=== PATIENT | female | born 1955 | race Caucasian/White ===

== ENCOUNTER 2016-12-24 09:38 | Outpatient (CLI) ==
[2013-04-15 11:58] VITALS: TEMP 97.2
[2016-06-27 19:48] VITALS: BMI 30.4
--- NOTE | 2016-12-24 12:02 | MRI ---
EXAM: MRI left shoulder without contrast. HISTORY: Left shoulder pain x2 months. No injury. Decreased and painful range of motion. No left shoulder surgery reported.. TECHNIQUE: Using a local coil on a high field strength magnet multiplanar multisequence magnet reso nance imaging performed of the left shoulder without intravenous or intra-articular gadolinium contr ast.. FINDINGS: I do not have prior radiographs of the left shoulder available for comparison at the time of this dictation. A Type I acromion. Some anterolateral downsloping with the coracoacromial ligament/arch intact and no definitive thickening. Mild left acromioclavicular joint arthrosis. Deltoid musculature normal signal intensity. Trace free fluid subacromial/subdeltoid bursa. Muscle bulk of the rotator cuff shows no acute muscle strain or focal atrophy. Marked diffuse supra spinatus tendinosis. 7 mm area of shallow partial thickness bursal sided tear. No full-thickness r otator cuff tear identified. Specifically anterior intact subscapularis tendon fibers. The long he ad of the biceps tendon shows intact fibers located in expected position within the bicipital groove and within normal limits signal intensity and morphology. Left humeral head of normal morphology and seated. No left glenohumeral joint centered subchondral bone marrow edema or bone erosions. Physiologic amount of fluid left glenohumeral joint. Left henok oid labrum grossly intact on this non-arthrographic examination.. Bone marrow signal intensity show s heterogeneity along the proximal visualized left humeral shaft with decreased T1 signal intensity iso to hyperintense to muscle with some increased T2/STIR signal intensity.. IMPRESSION: Mild left acromioclavicular joint arthrosis. Marked diffuse supraspinatus tendinosis. 7 mm area of shallow partial thickness bursal sided tear. No full-thickness rotator cuff tear identified. Trace free fluid subacromial/subdeltoid bursa may reflect an overlying degree bursitis and/or be sequelae of prior shoulder injection. Correlate clin ically. Bone marrow signal heterogeneity proximal left humeral shaft which may reflect prominent red marrow. Correlate for reconversion. Recommendation is obtainment and correlation with plain film radiogra phs of the left shoulder as none are available for comparison at the time of this dictation.
== END 2016-12-24 09:39 | disposition home or self-care (01) ==
LOC: RAD 09:38
DX: M25.512 Pain in left shoulder (principal); G89.29 Other chronic pain

== ENCOUNTER 2016-12-26 19:18 | Emergency (ER) ==
[2016-12-26 19:35] VITALS: BP 90/58; TEMP 99.1; BMI 31.6
[2016-12-26] MEDS ORDERED: SODIUM CHLORIDE 500 ML IV STA (19:57)
[2016-12-26 19:59] LABS: BASOPHILS % (AUTO) 0.5 % (0.0-3.0); EOSINOPHILS # (AUTO) 0.1 K/ul (0.0-0.7); EOSINOPHILS % (AUTO) 1.2 % (0.0-7.0); HEMOGLOBIN 10.9 g/dl (12.0-16.0); IMMATURE GRANULOCYTE % (AUTO) 0.5 % (0.0-5.0); LYMPHOCYTES # (AUTO) 2.3 K/uL (0.60-3.4); LYMPHOCYTES % (AUTO) 34.7 (10.0-50.0); MEAN CORPUSCULAR HEMOGLOBIN 27.3 pg (27.0-31.0); MEAN CORPUSCULAR HGB CONC 31.1 (31.8-35.4); MEAN CORPUSCULAR VOLUME 87.5 fl (81.0-99.0); MONOCYTES # (AUTO) 0.5 K/uL (0.4-2.0); MONOCYTES % (AUTO) 8.2 (0-10); NEUTROPHILS # (AUTO) 3.6 K/ul (2.0-6.9); NEUTROPHILS % (AUTO) 54.9; PLATELET COUNT 266 10^3/uL (140-440); WHITE BLOOD COUNT 6.58 K/ul (4.6-10.2)
--- NOTE | 2016-12-26 20:02 | ED.PDOC ---
General ED Provider: Dr. VEENA LING Chief Complaint: Non-specific Complaint Stated Complaint: Been feeling weka, tired, blood pressure is low, she is started on HCTZ, cramps in legs, shortness of breath. blood sugars are high Time Seen by Physician: 20:02 Mode of Arrival: Wheelchair Information Source: Patient Primary Care Provider: DANI GALVEZ Nursing and Triage Documentation Reviewed and Agree: Yes Neurological Complaint Exam - Weakness Complaint/Exam Onset: Gradual Symptoms Are: Still present Timing: Constant Episodes Lasting: Days Initial Severity: Moderate Current Severity: Moderate Character: Reports: Head spinning, Room spinning, Lightheaded Aggravating: Reports: None Alleviating: Reports: None Associated Signs and Symptoms: Reports: Short of air, Unsteady gait, Decreased oral intake, Change in medication, Loss of balance. Denies: Nausea, Vomiting, Diaphoresis, Tinnitus, Chest pain, Palpitations, GI blood loss, Visual changes, Change in diet, OTC meds Cardiac Risk Factors: Reports: Hypertension, Elevated lipids CVA Risk Factors: Reports: Hypertension Related Surgical History: Reports: None JVD Present: No Carotid Bruit Present: No Rectal Heme Positive: No Nystagmus Present: No Gag Reflex Present: No Meningeal Signs Positive: No Focal Weakness: Present: None Focal Sensory Loss: Present: None Gait: Unable [id number]: Normal Findings Romberg Test Positive: No Babinski Sign: Negative Right, Negative Left Heel to Toe Normal: No Maurisio-Hallpike Test Positive: No Differential Diagnoses: Medication reaction, Metabolic abnormalities, Other (dm 2, ) Review of Systems - Review Of Systems Constitutional: Reports: Malaise, Weakness Eyes: Reports: No symptoms Ears, Nose, Mouth, Throat: Reports: No symptoms Respiratory: Reports: Short of air Cardiac: Reports: No symptoms GI: Reports: No symptoms : Reports: No symptoms Musculoskeletal: Reports: No symptoms Skin: Reports: No symptoms Neurological: Reports: Headache, Weakness Endocrine: Reports: No symptoms Hematologic/Lymphatic: Reports: No symptoms All Other Systems: Reviewed and Negative Past Medical History - Past Medical History Previously Healthy: No Endocrine: Reports: Dyslipidemia Cardiovascular: Reports: None Respiratory: Reports: None Hematological: Reports: None Gastrointestinal: Reports: GERD Genitourinary: Reports: None Neuro/Psych: Reports: None Musculoskeletal: Reports: None Cancer: Reports: None Last Menstrual Period: unknown - Surgical History General Surgical History: Reports: Hysterectomy, Unknown - Family History Family History: Reports: Unknown - Social History Smoking Status: Current every day smoker, Light tobacco smoker Smoking Cessation Counseling Time: > 3 min - 10 min Hx Substance Use: No Alcohol Screening: None Physical Exam - Physical Exam Appearance: Ill-appearing Pain Distress: Moderate Eyes: EOMI, Conjunctiva clear ENT: Ears normal, Nose normal, Oropharynx normal Respiratory: Breath sounds diminished Cardiovascular: RRR, Pulses normal, No rub, No murmur GI/: Soft, Nontender, No masses, Bowel sounds normal, No Organomegaly Musculoskeletal: Normal strength, ROM intact, No edema, No calf tenderness Skin: Warm, Dry, Normal color Neurological: Sensation intact, Motor intact, Reflexes intact, Cranial nerves intact, Alert, Oriented Psychiatric: Affect appropriate, Mood appropriate Interpretation - Radiology Interpretation Radiology Interpretation By: Radiologist Radiology Results: Negative Exam Interpreted: CT Scan Critical Care Note - Critical Care Note Total Time (mins): 0 Course - Course Hematology/Chemistry: 12/26/16 19:50 12/26/16 19:50 Orders, Labs, Meds: Lab Review 12/26/16 12/26/16 19:50 19:57 WBC 6.58 RBC 4.00 L Hgb 10.9 L Hct 35.0 L MCV 87.5 MCH 27.3 MCHC 31.1 L RDW Coeff of Fabian 13.9 Plt Count 266 Immature Gran % (Auto) 0.5 Neut % (Auto) 54.9 Lymph % (Auto) 34.7 [place] % (Auto) 8.2 Eos % (Auto) 1.2 Baso % (Auto) 0.5 Immature Gran # (Auto) 0.0 Neut # 3.6 Lymph # 2.3 [place] # 0.5 Eos # 0.1 Baso # 0.0 Puncture Site Rrad O2 Saturation 98.0 ABG pH 7.432 ABG pCO2 40.5 ABG pO2 98.0 ABG HCO3 27 H ABG Total CO2 28 ABG Base Excess 3 H Kash Test + O2 Delivery Device bnc Oxygen Liter Flow 3.00 FiO2 % 32.0 Sodium 138 Potassium 4.1 Chloride 99 Carbon Dioxide 30 Anion Gap 13.1 BUN 20 H Creatinine 1.41 H Estimated GFR (MDRD) 38.00 BUN/Creatinine Ratio 14.18 Glucose 99 Calcium 9.0 Total Bilirubin 0.15 AST 20 ALT 14 Alkaline Phosphatase 96 Total Protein 7.3 Albumin 3.5 Globulin 3.8 Albumin/Globulin Ratio 0.92 Orders Category Date Time Status ABG DRAW REQUEST Stat CARDIO 12/26/16 19:57 Completed ED IV/MEDIPORT/POWERPORT .ONCE EMERGENCY 12/26/16 19:57 Active ABG Stat LAB 12/26/16 19:57 Completed CBC W/ AUTO DIFF Stat LAB 12/26/16 19:50 Completed COMPREHENSIVE METABOLIC PANEL Stat LAB 12/26/16 19:50 Completed UA [URINALYSIS C & S IF INDICATED] Stat LAB 12/26/16 19:44 Uncollected 0.9 % Sodium Chloride [Saline Flush] MEDS 12/26/16 19:57 Ordered 1 syr IVF PRN PRN Sodium Chloride 0.9% [Sodium Chloride] 500 ml MEDS 12/26/16 19:57 Active IV 125 mls/hr CT CHEST W/O CONTRAST Stat RADS 12/26/16 19:[address] HEAD W/O CONTRAST Stat RADS 12/26/16 19:57 Completed Medications Generic Name Dose Route Start Last Admin Trade Name Freq PRN Reason Stop Dose Admin Sodium Chloride 500 mls @ 125 mls/hr 12/26/16 19:57 Sodium Chloride IV 12/26/16 23:56 .Q4H STA Sodium Chloride 1 syr 12/26/16 19:57 Saline Flush IVF PRN PRN To flush IV Vital Signs: Temp Pulse Resp BP Pulse Ox 12/26/16 19:19 99.1 F 71 20 90/58 L 90 L Departure - Departure Time of Disposition: 20:53 Disposition: HOME SELF-CARE Discharge Problem: Dehydration Instructions: Dehydration (ED) Condition: Stable Pt referred to PMD for follow-up: Yes Additional Instructions: Increase hydration HCTZ every otherday needs back of Pain medications Allergies/Adverse Reactions: Allergies aspirin Adverse Reaction (Verified 06/08/16 16:31) Difficulty Breathing iodine Adverse Reaction (Verified 06/08/16 16:31) Hives Home Medications: Ambulatory Orders Alprazolam [Xanax] 0.5 mg PO QID 04/15/13 Citalopram Hydrobromide [Celexa] 20 mg PO BEDTIME 11/20/13 Gabapentin [Neurontin] 300 mg PO TID 03/18/16 Ranitidine HCl 150 mg PO DAILY PRN 03/18/16 Zolpidem Tartrate [Ambien] 10 mg PO BEDTIME 03/18/16 Carisoprodol [Soma] 350 mg PO QID 12/26/16 Hydrochlorothiazide 12.5 mg PO DAILY 12/26/16 Hydrocodone Bit/Acetaminophen [[place] 10-325] 1 each PO Q6HR 12/26/16 Quetiapine Fumarate [Seroquel] 100 mg PO QID 12/26/16 Disposition Discussed With: Patient, Family
[2016-12-26 20:15] LABS: ABG BASE EXCESS 3 (-2.0-2.0); ABG HCO3 27 (22.0-26.0); ABG PCO2 40.5 mmHg (35-45); ABG PH 7.432 (7.35-7.45); ABG TCO2 28 (22.0-28.0)
[2016-12-26 20:19] LABS: ALBUMIN 3.5 g/dL (3.4-5.0); ALBUMIN/GLOBULIN RATIO 0.92; ANION GAP 13.1; BILIRUBIN,TOTAL 0.15 mg/dL (0.00-1.20); BUN/CREATININE RATIO 14.18; CREATININE 1.41 mg/dL (0.60-1.30); POTASSIUM 4.1 mmol/L (3.5-5.10); TOTAL PROTEIN 7.3 g/dL (5.8-8.1)
--- NOTE | 2016-12-26 20:34 | CT ---
EXAM: CT head without contrast. HISTORY: Weakness. Dizziness. COMPARISON: 03/19/2016. TECHNIQUE: Multiple axial images of the brain were obtained from the skull base through the vertex without intravenous contrast. FINDINGS: There is no intracranial hemorrhage or extraaxial collection. The fonseca-white differentia tion is maintained without evidence for acute large vascular territory infarction. There are areas of periventricular and subcortical white matter low attenuation. The cortical sulci and cerebral ve ntricles are symmetrically enlarged. The basal cisterns are well visualized. There is no hydroceph alus, mass effect, or midline shift. The paranasal sinuses and mastoid air cells are clear. The ca lvarium is intact. Since the prior study, there has been no significant interval change. IMPRESSION: 1. No acute intracranial abnormality. 2. Chronic small vessel ischemic changes and atrophy.
--- NOTE | 2016-12-26 20:42 | CT ---
EXAM: CT chest without contrast. HISTORY: Shortness of breath. Weakness. COMPARISON: 07/20/2015. TECHNIQUE: Multiple axial images of the chest were obtained without intravenous contrast. Images w ere reformatted in the sagittal and coronal planes. FINDINGS: Evaluation for lymphadenopathy is limited due to lack of intravenous contrast. Heart siz e is normal. There is no pericardial effusion. Atherosclerotic calcifications noted. Moderate emphysematous changes present bilaterally. Calcified granulomatous changes are present. L inear subsegmental atelectasis seen in the right lower lobe. No consolidation, pleural effusion or pneumothorax identified. Limited images of the upper abdomen demonstrate no acute abnormality. Degenerative changes present in the spine. IMPRESSION: 1. No acute cardiopulmonary process. 2. Moderate emphysema.
[2016-12-26 22:02] LABS: ADD URINE MICROSCOPIC NO; BILIRUBIN,URINE Negative (NEGATIVE); KETONES,URINE Trace (NEGATIVE); LEUKOCYTE ESTERASE ,URINE Negative (NEGATIVE); NITRITE,URINE Negative (NEGATIVE); PROTEIN,URINE Negative (NEGATIVE); URINE, BLOOD Negative (NEGATIVE)
== END 2016-12-26 23:01 | disposition home or self-care (01) ==
LOC: ED 19:18
DX: E86.0 Dehydration (principal); R42 Dizziness and giddiness; R51 Headache; R06.02 Shortness of breath; I10 Essential (primary) hypertension; E78.5 Hyperlipidemia, unspecified; F17.210 Nicotine dependence, cigarettes, uncomplicated; Z79.899 Other long term (current) drug therapy
CPT/HCPCS: 36415; 80053; 81001; 82803; 85025; 96360; 96361; 99283

== ENCOUNTER 2017-05-01 08:32 | Emergency (ER) | payer OTHER ==
[2017-05-01 08:37] VITALS: BP 115/74; TEMP 96.8; BMI 30.4
[2017-05-01 09:24] LABS: BASOPHILS % (AUTO) 0.5 % (0.0-3.0); EOSINOPHILS % (AUTO) 0.5 % (0.0-7.0); HEMATOCRIT 34.2 % (37.0-47.0); HEMOGLOBIN 10.4 g/dl (12.0-16.0); IMMATURE GRANULOCYTE % (AUTO) 0.4 % (0.0-5.0); LYMPHOCYTES # (AUTO) 2.1 K/uL (0.60-3.4); LYMPHOCYTES % (AUTO) 26.3 (10.0-50.0); MEAN CORPUSCULAR HEMOGLOBIN 24.2 pg (27.0-31.0); MEAN CORPUSCULAR HGB CONC 30.4 (31.8-35.4); MEAN CORPUSCULAR VOLUME 79.7 fl (81.0-99.0); MONOCYTES # (AUTO) 0.7 K/uL (0.4-2.0); MONOCYTES % (AUTO) 8.1 (0-10); NEUTROPHILS # (AUTO) 5.1 K/ul (2.0-6.9); NEUTROPHILS % (AUTO) 64.2; PLATELET COUNT 321 10^3/uL (140-440); RED BLOOD COUNT 4.29 10^6/ul (4.20-5.40); WHITE BLOOD COUNT 7.98 K/ul (4.6-10.2)
[2017-05-01 09:32] LABS: ABG BASE EXCESS 1 (-2.0-2.0); ABG HCO3 25.6 (22.0-26.0); ABG PCO2 39.4 mmHg (35-45)
[2017-05-01 09:33] LABS: ABG TCO2 27 (22.0-28.0)
[2017-05-01 09:46] LABS: ALANINE AMINOTRANSFERASE 14 U/L (12-78); ALBUMIN 3.9 g/dL (3.4-5.0); ALBUMIN/GLOBULIN RATIO 1.03; ALKALINE PHOSPHATASE 100 U/L (53-141); ASPARTATE AMINO TRANSFERASE 16 U/L (15-37); BILIRUBIN,TOTAL 0.41 mg/dL (0.00-1.20); BLOOD UREA NITROGEN 13 mg/dL (7-18); CALCIUM 9.2 mg/dL (8.2-10.2); CARBON DIOXIDE 24 mmol/L (23-31); CHLORIDE 105 mmol/L (98-107); CREATINE KINASE 79 U/L; CREATININE 1.04 mg/dL (0.60-1.30); GLUCOSE 104 mg/dL (82-115); SODIUM 139 mmol/L (136-145); TOTAL PROTEIN 7.7 g/dL (5.8-8.1)
[2017-05-01 10:02] LABS: BILIRUBIN,URINE Negative (NEGATIVE); KETONES,URINE Negative (NEGATIVE); LEUKOCYTE ESTERASE ,URINE 1+ (NEGATIVE); NITRITE,URINE Negative (NEGATIVE); PROTEIN,URINE Trace (NEGATIVE); URINE, BLOOD Trace-intact (NEGATIVE)
[2017-05-01 10:07] LABS: ADD URINE MICROSCOPIC YES
--- NOTE | 2017-05-01 10:19 | CT ---
EXAM: CT THORAX HISTORY: Cough. Shortness of breath. TECHNIQUE: CT thorax without intravenous contrast. 5-mm axial sections. Coronal and sagittal re-fo rmations. COMPARISON: 12/26/2016 FINDINGS: Normal heart size. No pericardial effusion. There is minimal atherosclerotic disease. No active m ediastinal or hilar lymphadenopathy is suggested. A few tiny calcified mediastinal lymph nodes. There is a small calcified granuloma in the left lung base. Early emphysematous changes are suggest ed in the upper lung zones. The lungs are mildly hyperinflated. No acute infiltrates, vascular con gestion, pneumothorax or pleural fluid. The bones reveal early degenerative endplate changes of the spine . IMPRESSION: 1. Early emphysematous changes in the upper lung zones are suggested. Mild hyperinflation. 2. No consolidated pneumonia or acute infiltrates. 3. Minimal atherosclerotic disease.
[2017-05-01] MEDS ORDERED: DECADRON 4 MG/ML SDV IM STA (10:31)
--- NOTE | 2017-05-01 10:34 | ED.PDOC ---
General ED Provider: Dr. BETH DELGADO Chief Complaint: Shortness of Air Stated Complaint: shortness of breath Time Seen by Physician: 08:34 Mode of Arrival: Walk-In Information Source: Patient Exam Limitations: No limitations Primary Care Provider: DANI GALVEZ Nursing and Triage Documentation Reviewed and Agree: Yes Respiratory Complaint Exam - Respiratory Complaint/Exam Onset/Duration: 1 day Symptoms Are: Still present Timing: Intermittent Initial Severity: Mild Current Severity: None Location: Chest Character: Reports: Non-productive cough Aggravating: Reports: None Alleviating: Reports: Spontaneous resolution Associated Signs and Symptoms: Reports: Nasal congestion. Denies: Rapid breathing, Dyspnea, Fever, Chills, Chest pain, Pleuritic chest pain, Wheezing, Hemoptysis, Dizziness, Calf pain, Calf swelling, Edema, URI, Hoarseness, Sinus discomfort, Vomiting, Sore throat, Weight loss, Decreased oral intake, Increased thirst, Increased appetite, Increased urination Related History: Reports: Similar episode History of Healthcare-Acquired Pneumonia: No Related Surgical History: Reports: None Pulmonary Embolism Risk Factors: Smoking Cardiac Risk Factors: Reports: Smoking Pseudomonas Risk Factors: Reports: None Tuberculosis Risk Factors: Reports: None Home Oxygen Use: No Recent Stress Test: No Recent Echo/LV Function: No Current Antibiotic Use: No Current Asthma Medication Use: No Respiratory Distress: None Inadequate Respiratory Effort: No Dysphagia Present: No Stridor Present: No JVD Present: No Accessory Muscle Use: No Retractions: Not Present Diminished Breath Sounds: No Sinus Tenderness: None Grunting Respirations: No Kussmaul Respirations: No Differential Diagnoses: Pneumonia, Bronchitis Non-Traumatic Chest Pain Syncope: EKG Performed Review of Systems - Review Of Systems Constitutional: Reports: Malaise Eyes: Reports: No symptoms Ears, Nose, Mouth, Throat: Reports: No symptoms Respiratory: Reports: Cough, Short of air Cardiac: Reports: No symptoms GI: Reports: No symptoms : Reports: No symptoms Musculoskeletal: Reports: No symptoms Skin: Reports: No symptoms Neurological: Reports: No symptoms Endocrine: Reports: No symptoms Hematologic/Lymphatic: Reports: No symptoms All Other Systems: Reviewed and Negative Past Medical History - Past Medical History Previously Healthy: No Endocrine: Reports: Dyslipidemia Cardiovascular: Reports: None Respiratory: Reports: None Hematological: Reports: None Gastrointestinal: Reports: GERD Genitourinary: Reports: None Neuro/Psych: Reports: None Musculoskeletal: Reports: None Cancer: Reports: None Last Menstrual Period: n/a - Surgical History General Surgical History: Reports: Hysterectomy, Unknown - Family History Family History: Reports: Unknown - Social History Smoking Status: Current every day smoker, Light tobacco smoker Hx Substance Use: No Alcohol Screening: None Physical Exam - Physical Exam Appearance: Well-appearing, No pain distress, Well-nourished Eyes: DONTE, EOMI, Conjunctiva clear ENT: Ears normal, Nose normal, Oropharynx normal Respiratory: Airway patent, Breath sounds clear, Breath sounds equal, Respirations nonlabored Cardiovascular: RRR, Pulses normal, No rub, No murmur GI/: Soft, Nontender, No masses, Bowel sounds normal, No Organomegaly Musculoskeletal: Normal strength, ROM intact, No edema, No calf tenderness Skin: Warm, Dry, Normal color Neurological: Sensation intact, Motor intact, Reflexes intact, Cranial nerves intact, Alert, Oriented Psychiatric: Affect appropriate, Mood appropriate Interpretation - Radiology Interpretation Radiology Interpretation By: Radiologist Radiology Results: No acute changes Critical Care Note - Critical Care Note Total Time (mins): 0 Course - Course Hematology/Chemistry: 05/01/17 09:10 05/01/17 09:10 Orders, Labs, Meds: Lab Review 05/01/17 05/01/17 09:10 09:55 WBC 7.98 RBC 4.29 Hgb 10.4 L Hct 34.2 L MCV 79.7 L MCH 24.2 L MCHC 30.4 L RDW Coeff of Fabian 17.1 H Plt Count 321 Immature Gran % (Auto) 0.4 Neut % (Auto) 64.2 Lymph % (Auto) 26.3 [place] % (Auto) 8.1 Eos % (Auto) 0.5 Baso % (Auto) 0.5 Immature Gran # (Auto) 0.0 Neut # 5.1 Lymph # 2.1 [place] # 0.7 Eos # 0.0 Baso # 0.0 D-Dimer (Manual) 1500.27 Puncture Site R rad O2 Saturation 98.0 ABG pH 7.420 ABG pCO2 39.4 ABG pO2 104.0 H ABG HCO3 25.6 ABG Total CO2 27 ABG Base Excess 1 Kash Test + O2 Delivery Device Nc Oxygen Liter Flow 3.50 Sodium 139 Potassium 4.0 Chloride 105 Carbon Dioxide 24 Anion Gap 14.0 BUN 13 Creatinine 1.04 Estimated GFR (MDRD) 54.00 BUN/Creatinine Ratio 12.50 Glucose 104 Lactic Acid 9.3 Calcium 9.2 Total Bilirubin 0.41 AST 16 ALT 14 Alkaline Phosphatase 100 Total Creatine Kinase 79 Troponin I < 0.0100 Total Protein 7.7 Albumin 3.9 Globulin 3.8 Albumin/Globulin Ratio 1.03 Procalcitonin < 0.05 Urine Color Yellow Urine Clarity Hazy Urine pH 6.0 Ur Specific [place] 1.010 Urine Protein Trace Urine Glucose (UA) Negative Urine Ketones Negative Urine Blood Trace-intact Urine Nitrite Negative Urine Bilirubin Negative Urine Urobilinogen 0.2 Ur Leukocyte Esterase 1+ Urine Microscopic RBC 2-5 Urine Microscopic WBC 0-2 Ur Squamous Epith Cells 10-20 Hyaline Casts 0-2 Fine Granular Casts 0-2 Orders Category Date Time Status ABG DRAW REQUEST Stat CARDIO 05/01/17 09:06 Completed EKG-(ED ONLY) Stat CARDIO 05/01/17 09:07 Completed ABG Stat LAB 05/01/17 09:10 Completed BLOOD CULTURE Stat LAB 05/01/17 09:10 Received CBC W/ AUTO DIFF Stat LAB 05/01/17 09:10 Completed COMPREHENSIVE METABOLIC PANEL Stat LAB 05/01/17 09:10 Completed CREATINE KINASE Stat LAB 05/01/17 09:10 Completed D-DIMER Stat LAB 05/01/17 09:10 Completed LACTIC ACID Stat LAB 05/01/17 09:10 Completed PROCALCITONIN Stat LAB 05/01/17 09:10 Completed TROPONIN I Stat LAB 05/01/17 09:10 Completed URINALYSIS C & S IF INDICATED Stat LAB 05/01/17 09:55 Completed Dexamethasone 4 mg/ml Inj [Decadron 4 mg/ml Sdv] MEDS 05/01/17 10:31 Stat 4 mg IM ONCE STA CT CHEST W/O CONTRAST Stat RADS 05/01/17 09:05 Completed Medications Discontinued Medications Generic Name Dose Route Start Last Admin Trade Name Freq PRN Reason Stop Dose Admin Dexamethasone Sodium Phosphate 4 mg 05/01/17 10:31 Decadron 4 Mg/Ml Sdv IM 05/01/17 10:32 ONCE STA Vital Signs: Temp Pulse Resp BP Pulse Ox 05/01/17 08:34 96.8 F L 91 H 20 115/74 96 Departure - Departure Time of Disposition: 10:33 (nurse present at all time) Disposition: HOME SELF-CARE Discharge Problem: COPD (chronic obstructive pulmonary disease) Qualifiers: COPD type: unspecified COPD Qualifier Code: (J44.9) Chronic obstructive pulmonary disease, unspecified Anemia Qualifiers: Anemia type: unspecified type Qualifier Code: (D64.9) Anemia, unspecified Instructions: COPD (Chronic Obstructive Pulmonary Disease) (ED) Condition: Good Pt referred to PMD for follow-up: No Additional Instructions: Please call your Family Physician as soon as possible to schedule a follow-up appointment. Allergies/Adverse Reactions: Allergies aspirin Adverse Reaction (Verified 05/01/17 08:36) Difficulty Breathing iodine Adverse Reaction (Verified 05/01/17 08:36) Hives Home Medications: Ambulatory Orders Alprazolam [Xanax] 0.5 mg PO QID 04/15/13 Citalopram Hydrobromide [Celexa] 20 mg PO BEDTIME 11/20/13 Gabapentin [Neurontin] 300 mg PO BID 03/18/16 Ranitidine HCl 150 mg PO DAILY PRN 03/18/16 Zolpidem Tartrate [Ambien] 10 mg PO BEDTIME 03/18/16 Carisoprodol [Soma] 350 mg PO TID 12/26/16 Hydrochlorothiazide 12.5 mg PO DAILY 12/26/16 Hydrocodone Bit/Acetaminophen [[place] 10-325] 1 each PO Q8H PRN 12/26/16 Quetiapine Fumarate [Seroquel] 200 mg PO BID 12/26/16 Albuterol Sulfate [Proair Hfa] 2 puff IH BID 05/01/17 Budesonide/Formoterol Fumarate [Symbicort 160-4.5 Mcg Inhaler] 1 puff IH BID Metoprolol Tartrate [Lopressor] 50 mg PO BID 05/01/17 Montelukast Sodium [Singulair] 10 mg PO BEDTIME 05/01/17 Ondansetron HCl [Zofran] 4 mg PO PRN PRN 05/01/17 Disposition Discussed With: Patient
== END 2017-05-01 11:09 | disposition home or self-care (01) ==
LOC: ED 08:32
DX: J44.9 Chronic obstructive pulmonary disease, unspecified (principal); D64.9 Anemia, unspecified; Z79.899 Other long term (current) drug therapy; F17.210 Nicotine dependence, cigarettes, uncomplicated
CPT/HCPCS: 36415; 80053; 81001; 82550; 82803; 83605; 84145; 84484; 85025; 85379; 87040; 93005; 93010; 96372; 99283

== ENCOUNTER 2017-06-11 21:11 | Inpatient (IN) ==
[2017-06-11] MEDS ORDERED: SODIUM CHLORIDE 1,000 ML IV STA ×2 (21:21→21:54)
[2017-06-11 21:42] LABS: BASOPHILS # (AUTO) 0.1 K/uL (0-0.2); BASOPHILS % (AUTO) 0.7 % (0.0-3.0); EOSINOPHILS # (AUTO) 0.1 K/ul (0.0-0.7); EOSINOPHILS % (AUTO) 0.9 % (0.0-7.0); HEMATOCRIT 28.8 % (37.0-47.0); HEMOGLOBIN 8.7 g/dl (12.0-16.0); IMMATURE GRANULOCYTE % (AUTO) 0.5 % (0.0-5.0); LYMPHOCYTES % (AUTO) 37.6 (10.0-50.0); MEAN CORPUSCULAR HGB CONC 30.2 (31.8-35.4); MEAN CORPUSCULAR VOLUME 79.6 fl (81.0-99.0); MONOCYTES # (AUTO) 0.6 K/uL (0.4-2.0); NEUTROPHILS # (AUTO) 4.3 K/ul (2.0-6.9); NEUTROPHILS % (AUTO) 53.3; PLATELET COUNT 275 10^3/uL (140-440); RED BLOOD COUNT 3.62 10^6/ul (4.20-5.40); WHITE BLOOD COUNT 8.01 K/ul (4.6-10.2)
--- NOTE | 2017-06-11 21:51 | ED.PDOC ---
General ED Provider: Dr. ESTELITA KAUFMAN Chief Complaint: Non-specific Complaint Stated Complaint: Albert is a 62 year old female who comes to the ER after she collapsed at home. Her blood pressure has been running low in the past and was recently put on supplimental 02. Polinat states that she went without oxygen today while going to pain management to get shots in back. Pt. usually wears 02 at 3.5L/C at home. c/o headache rating 4/10. Says patient also ate 5 small fudge josé miguel. blood glucose was 147 in the ER upon arrival. has multiple medications that could cause sedation. sometime not sure how she takes them per Tam' Time Seen by Physician: 21:49 Mode of Arrival: Wheelchair Information Source: Patient Exam Limitations: No limitations Primary Care Provider: DANI GALVEZ Nursing and Triage Documentation Reviewed and Agree: Yes Neurological Complaint Exam - Syncope/Near Syncope Complaint/Exam Onset/Duration: 30 min Symptoms Are: Still present Number of Episodes: 1 Frequency of Episodes: yes fiancee' Episodes Witnessed: Yes Loss of Consciousness: No Associated Head Trauma: No Activity at Onset: At rest Aggravating: Position change Alleviating: Reports: Position change Associated Signs and Symptoms: Reports: Pain (back ), Lightheadedness, Dizziness , Weakness, Headache. Denies: Vomiting, Diarrhea, GI blood loss, Short of air, Chest pain, Palpitations, Diaphoresis, Numbness, Seizure, Remote head trauma, Recent head trauma Related History: Similar episode Cardiac Risk Factors: Reports: None Dysrhythmia Risk Factors: Reports: None Review of Systems - Review Of Systems Constitutional: Reports: Malaise, Weakness Eyes: Reports: No symptoms, Blindness Ears, Nose, Mouth, Throat: Reports: No symptoms Respiratory: Reports: No symptoms Cardiac: Reports: Lightheadedness, Syncope GI: Reports: No symptoms : Reports: No symptoms Musculoskeletal: Reports: Back pain, Muscle pain Skin: Reports: No symptoms Neurological: Reports: Anxiety, Depressed All Other Systems: Reviewed and Negative Past Medical History - Past Medical History Previously Healthy: No Endocrine: Reports: Dyslipidemia Cardiovascular: Reports: None Respiratory: Reports: COPD Hematological: Reports: None Gastrointestinal: Reports: GERD Genitourinary: Reports: None Neuro/Psych: Reports: None Musculoskeletal: Reports: Arthritis, Back Pain Cancer: Reports: None Last Menstrual Period: 1983 - Surgical History General Surgical History: Reports: Hysterectomy, Unknown - Family History Family History: Reports: Unknown - Social History Smoking Status: Current every day smoker, Light tobacco smoker Hx Substance Use: No Alcohol Screening: None - Immunizations Tetanus Shot up to Date: Yes Physical Exam - Physical Exam Appearance: Ill-appearing, Obese Ill-appearing: Severe Pain Distress: Moderate Eyes: DONTE, EOMI, Conjunctiva clear ENT: Nose normal, Oropharynx normal Neck: Supple Respiratory: Airway patent, Breath sounds clear, Breath sounds equal, Respirations nonlabored Cardiovascular: RRR, Pulses normal, No rub, No murmur GI/: Soft, Nontender Musculoskeletal: Normal strength, ROM intact, No edema, No calf tenderness Skin: Warm, Dry, Normal color Neurological: Alert to pain Psychiatric: Anxious Re-Evaluation - Re-Evaluation Time of Re-Evaluation: 23:48 Status: Improved (much more awake ) Vital Signs Stable: Yes (91/44) Physician Notification - Case Discussed Physician Notified: Miteshjjose cruz Time of Notification: 23:45 (ok to admit ) Critical Care Note - Critical Care Note Total Time (mins): 45 Course - Course Hematology/Chemistry: 06/11/17 21:30 06/11/17 21:30 Orders, Labs, Meds: Lab Review 06/11/17 06/11/17 06/11/17 21:21 21:30 22:00 WBC 8.01 RBC 3.62 L Hgb 8.7 L Hct 28.8 L MCV 79.6 L MCH 24.0 L MCHC 30.2 L RDW Coeff of Fabian 16.7 H Plt Count 275 Immature Gran % (Auto) 0.5 Neut % (Auto) 53.3 Lymph % (Auto) 37.6 Mills % (Auto) 7.0 Eos % (Auto) 0.9 Baso % (Auto) 0.7 Immature Gran # (Auto) 0.0 Neut # 4.3 Lymph # 3.0 Mills # 0.6 Eos # 0.1 Baso # 0.1 Puncture Site Lb O2 Saturation 97.0 ABG pH 7.349 L ABG pCO2 44.6 ABG pO2 100.0 ABG HCO3 24.6 ABG Total CO2 26 ABG Base Excess -1 Kash Test + O2 Delivery Device bnc Oxygen Liter Flow 2.00 FiO2 % 28.0 Sodium 140 Potassium 3.8 Chloride 105 Carbon Dioxide 23 Anion Gap 15.8 BUN 18 Creatinine 1.32 H Estimated GFR (MDRD) 41.00 BUN/Creatinine Ratio 13.63 Glucose 142 H Lactic Acid 16.4 Calcium 8.8 Total Bilirubin 0.11 AST 15 ALT 18 Alkaline Phosphatase 100 Troponin I < 0.0100 Total Protein 6.8 Albumin 3.2 L Globulin 3.6 Albumin/Globulin Ratio 0.89 Procalcitonin < 0.05 Orders Category Date Time Status ADMIT PATIENT INPATIENT .TO [facility] (MONITORED BED) ADMISSION 06/11/17 23: 30 Active ABG DRAW REQUEST Stat CARDIO 06/11/17 21:21 Completed EKG-(ED ONLY) Stat CARDIO 06/11/17 22:04 Completed NEBULIZER TREATMENT Routine CARDIO 06/11/17 23:41 Active OXYGEN Routine CARDIO 06/11/17 23:30 Active ACTIVITY .Early Mobilization for VTE Prevention CARE 06/11/17 23:31 Active INTAKE & OUTPUT Q8HR CARE 06/11/17 23:30 Active IV ACCESS ONCE CARE 06/11/17 21:20 Active TELEMETRY MONITORING TELE CARE 06/11/17 23:31 Active REGULAR DIET DIETARY 06/11/17 Breakfast Ordered ED ACCUCHECK ASSESSMENT .ONCE EMERGENCY 06/11/17 21:41 Active ED APPLY O2 .ONCE EMERGENCY 06/11/17 21:20 Active ED WHEELCHAIR VAN OPERATOR FIRST RESPONDER APPLIED .ONCE EMERGENCY 06/11/17 21:20 Active ABG Stat LAB 06/11/17 21:21 Completed BASIC METABOLIC PANEL DAILY@0600 LAB 06/12/17 06:00 Ordered BASIC METABOLIC PANEL DAILY@0600 LAB 06/13/17 06:00 Ordered BASIC METABOLIC PANEL DAILY@0600 LAB 06/14/17 06:00 Ordered BASIC METABOLIC PANEL DAILY@0600 LAB 06/15/17 06:00 Ordered BASIC METABOLIC PANEL DAILY@0600 LAB 06/16/17 06:00 Ordered BASIC METABOLIC PANEL DAILY@0600 LAB 06/17/17 06:00 Ordered BASIC METABOLIC PANEL DAILY@0600 LAB 06/18/17 06:00 Ordered BASIC METABOLIC PANEL DAILY@0600 LAB 06/19/17 06:00 Ordered BASIC METABOLIC PANEL DAILY@0600 LAB 06/20/17 06:00 Ordered BASIC METABOLIC PANEL DAILY@0600 LAB 06/21/17 06:00 Ordered BASIC METABOLIC PANEL DAILY@0600 LAB 06/22/17 06:00 Ordered BASIC METABOLIC PANEL DAILY@0600 LAB 06/23/17 06:00 Ordered BASIC METABOLIC PANEL DAILY@0600 LAB 06/24/17 06:00 Ordered BASIC METABOLIC PANEL DAILY@0600 LAB 06/25/17 06:00 Ordered BASIC METABOLIC PANEL DAILY@0600 LAB 06/26/17 06:00 Ordered BASIC METABOLIC PANEL DAILY@0600 LAB 06/27/17 06:00 Ordered BASIC METABOLIC PANEL DAILY@0600 LAB 06/28/17 06:00 Ordered BASIC METABOLIC PANEL DAILY@0600 LAB 06/29/17 06:00 Ordered BASIC METABOLIC PANEL DAILY@0600 LAB 06/30/17 06:00 Ordered BASIC METABOLIC PANEL DAILY@0600 LAB 07/01/17 06:00 Ordered BLOOD CULTURE Stat LAB 06/11/17 21:30 Received CBC W/ AUTO DIFF DAILY@0600 LAB 06/12/17 06:00 Ordered CBC W/ AUTO DIFF DAILY@0600 LAB 06/13/17 06:00 Ordered CBC W/ AUTO DIFF DAILY@0600 LAB 06/14/17 06:00 Ordered CBC W/ AUTO DIFF DAILY@0600 LAB 06/15/17 06:00 Ordered CBC W/ AUTO DIFF DAILY@0600 LAB 06/16/17 06:00 Ordered CBC W/ AUTO DIFF DAILY@0600 LAB 06/17/17 06:00 Ordered CBC W/ AUTO DIFF DAILY@0600 LAB 06/18/17 06:00 Ordered CBC W/ AUTO DIFF DAILY@0600 LAB 06/19/17 06:00 Ordered CBC W/ AUTO DIFF DAILY@0600 LAB 06/20/17 06:00 Ordered CBC W/ AUTO DIFF DAILY@0600 LAB 06/21/17 06:00 Ordered CBC W/ AUTO DIFF DAILY@0600 LAB 06/22/17 06:00 Ordered CBC W/ AUTO DIFF DAILY@0600 LAB 06/23/17 06:00 Ordered CBC W/ AUTO DIFF DAILY@0600 LAB 06/24/17 06:00 Ordered CBC W/ AUTO DIFF DAILY@0600 LAB 06/25/17 06:00 Ordered CBC W/ AUTO DIFF DAILY@0600 LAB 06/26/17 06:00 Ordered CBC W/ AUTO DIFF DAILY@0600 LAB 06/27/17 06:00 Ordered CBC W/ AUTO DIFF DAILY@0600 LAB 06/28/17 06:00 Ordered CBC W/ AUTO DIFF DAILY@0600 LAB 06/29/17 06:00 Ordered CBC W/ AUTO DIFF DAILY@0600 LAB 06/30/17 06:00 Ordered CBC W/ AUTO DIFF DAILY@0600 LAB 07/01/17 06:00 Ordered CBC W/ AUTO DIFF Stat LAB 06/11/17 21:30 Completed COMPREHENSIVE METABOLIC PANEL Stat LAB 06/11/17 21:30 Completed CREATINE KINASE Q8H LAB 06/12/17 05:45 Ordered CREATINE KINASE Q8H LAB 06/12/17 13:45 Ordered LACTIC ACID Stat LAB 06/11/17 21:30 Completed PROCALCITONIN Stat LAB 06/11/17 21:30 Completed TROPONIN I Q8H LAB 06/12/17 05:45 Ordered TROPONIN I Q8H LAB 06/12/17 13:45 Ordered TROPONIN I Stat LAB 06/11/17 22:00 Completed Acetaminophen [Tylenol] MEDS 06/11/17 22:58 Discontinued 1,000 mg PO ONCE STA Acetaminophen [Tylenol] MEDS 06/11/17 23:30 Ordered 650 mg PO Q4H PRN Enoxaparin Sodium [Lovenox] MEDS 06/12/17 09:00 Ordered 40 mg SUBCUT DAILY Ipratropium/Albuterol Neb [Duoneb] MEDS 06/12/17 06:00 Ordered 1 vial NEB RTQID Ondansetron HCl/Pf [Zofran 4 mg/2 ml] MEDS 06/11/17 23:30 Ordered 4 mg IVP Q6H PRN Sodium Chloride 0.9% [Sodium Chloride] 1,000 ml MEDS 06/11/17 21:21 Discontinued IV BOLUS Sodium Chloride 0.9% [Sodium Chloride] 1,000 ml MEDS 06/11/17 21:54 Discontinued IV BOLUS RESUSCITATION STATUS Routine OTHERS 06/11/17 23:30 Ordered CHEST, 1V AP ONLY Stat RADS 06/11/17 21:[address] HEAD W/O CONTRAST Stat RADS 06/11/17 22:56 Completed PT CONSULT Routine THERAPIES 06/11/17 Ordered Medications Generic Name Dose Route Start Last Admin Trade Name Freq PRN Reason Stop Dose Admin Acetaminophen 650 mg 06/11/17 23:30 Tylenol PO Q4H PRN Fever > 102 Acetaminophen/Hydrocodone Bitart tab 06/11/17 23:53 [place] 10-325 PO Q8H PRN Severe Pain Albuterol/Ipratropium 1 vial 06/12/17 06:00 Duoneb NEB RTQID [facility] Budesonide/Formoterol Fumarate 2 puff 06/12/17 09:00 Symbicort 160-4.5 Mcg Inhaler IH BID [facility] Citalopram Hydrobromide 20 mg 06/12/17 21:00 Celexa PO BEDTIME [facility] Enoxaparin Sodium 40 mg 06/12/17 09:00 Lovenox SUBCUT DAILY [facility] Gabapentin 300 mg 06/12/17 09:00 Neurontin PO BID [facility] Sodium Chloride 1,000 mls @ 135 mls/hr 06/12/17 00:30 06/12/17 00:18 Sodium Chloride IV 135 mls/hr .Q7H25M PENELOPE Administration Montelukast Sodium 10 mg 06/12/17 21:00 Singulair PO BEDTIME [facility] Non-Formulary Medication 150 mg 06/12/17 09:00 Ranitidine Hcl [Ranitidine Hcl] PO BID [facility] Ondansetron HCl 4 mg 06/11/17 23:30 Zofran 4 Mg/2 Ml IVP Q6H PRN Nausea / Vomiting Sodium Chloride 1 syr 06/12/17 05:00 Saline Flush IVF Q8HR [facility] Discontinued Medications Generic Name Dose Route Start Last Admin Trade Name Freq PRN Reason Stop Dose Admin Acetaminophen 1,000 mg 06/11/17 22:58 06/11/17 23:13 Tylenol PO 06/11/17 22:59 1,000 mg ONCE STA Administration Sodium Chloride 1,000 mls @ 1,000 mls/hr 06/11/17 21:21 06/11/17 21:40 Sodium Chloride IV 06/11/17 22:20 1,000 mls/hr BOLUS STA Administration Sodium Chloride 1,000 mls @ 1,000 mls/hr 06/11/17 21:54 06/11/17 22:39 Sodium Chloride IV 06/11/17 22:53 1,000 mls/hr BOLUS STA Administration Vital Signs: Temp Pulse Resp BP Pulse Ox 06/11/17 22:38 61 25 H 110/64 98 06/11/17 21:36 61 20 90/47 L 97 06/11/17 21:13 97.5 F L 66 20 94/51 L 94 L Departure - Departure Time of Disposition: 23:48 Disposition: ADMITTED INPATIENT Discharge Problem: Hypotension, Syncope and collapse, Back pain Condition: Fair Pt referred to PMD for follow-up: No (admitted ) Allergies/Adverse Reactions: Allergies aspirin Adverse Reaction (Verified 06/11/17 21:27) Difficulty Breathing iodine Adverse Reaction (Verified 06/11/17 21:27) Hives Home Medications: Ambulatory Orders Alprazolam [Xanax] 0.5 mg PO QID 04/15/13 Citalopram Hydrobromide [Celexa] 20 mg PO BEDTIME 11/20/13 Gabapentin [Neurontin] 300 mg PO BID 03/18/16 Ranitidine HCl 150 mg PO BID 03/18/16 Zolpidem Tartrate [Ambien] 10 mg PO BEDTIME 03/18/16 Hydrocodone Bit/Acetaminophen [[place] 10-325] 10 - 325 each PO Q8H PRN 12/26/16 Quetiapine Fumarate [Seroquel] 200 mg PO BID 12/26/16 Albuterol Sulfate [Proair Hfa] 2 puff IH BID 05/01/17 Budesonide/Formoterol Fumarate [Symbicort 160-4.5 Mcg Inhaler] 2 puff IH BID Metoprolol Tartrate [Lopressor] 50 mg PO BID 05/01/17 Montelukast Sodium [Singulair] 10 mg PO BEDTIME 05/01/17 Ondansetron HCl [Zofran] 4 mg PO Q8H PRN 05/01/17 Tizanidine HCl [Zanaflex] 4 mg PO BID 06/11/17
[2017-06-11 21:56] LABS: ABG BASE EXCESS -1 (-2.0-2.0); ABG HCO3 24.6 (22.0-26.0); ABG PCO2 44.6 mmHg (35-45); ABG PH 7.349 (7.35-7.45); ABG TCO2 26 (22.0-28.0)
[2017-06-11 22:01] LABS: ALBUMIN 3.2 g/dL (3.4-5.0); ALBUMIN/GLOBULIN RATIO 0.89; ANION GAP 15.8; BILIRUBIN,TOTAL 0.11 mg/dL (0.00-1.20); BUN/CREATININE RATIO 13.63; CALCIUM 8.8 mg/dL (8.2-10.2); CREATININE 1.32 mg/dL (0.60-1.30); POTASSIUM 3.8 mmol/L (3.5-5.10); TOTAL PROTEIN 6.8 g/dL (5.8-8.1)
[2017-06-11] MEDS ORDERED: TYLENOL PO STA (22:58)
[2017-06-11] MEDS ORDERED: SODIUM CHLORIDE 0.9%-KCL 20 MEQ 1,000 ML IV SCH (23:30)
[2017-06-11] MEDS ORDERED: ZOFRAN 4 MG/2 ML IVP PRN (23:30)
[2017-06-11] MEDS ORDERED: TYLENOL PO PRN (23:30)
--- NOTE | 2017-06-11 23:32 | CT ---
EXAM: CT scan brain without contrast HISTORY: Weakness headaches COMPARISON: CT scan brain 12/26/2016 FINDINGS: Contiguous axial images obtained from the skull base to the convexities without contrast utilizing 5-mm collimation. Sagittal and coronal reconstructions were imaged and reviewed.. The yoandy tricles and CSF spaces are prominent compatible with age appropriate atrophy. There is mild periven tricular hypodensity noted compatible with chronic microvascular disease. The visualized paranasal sinuses and mastoid air cells are clear. IMPRESSION: No acute intracranial findings. Age appropriate atrophy with chronic microvascular disease
[2017-06-12] MEDS: SODIUM CHLORIDE 1,000 ML IV SCH ×2 (00:18→09:18)
[2017-06-12 00:32] VITALS: BMI 29.3
[2017-06-12] MEDS: DUONEB NEB SCH ×4 (05:00→20:51)
[2017-06-12 05:55] LABS: BASOPHILS % (AUTO) 0.5 % (0.0-3.0); EOSINOPHILS # (AUTO) 0.1 K/ul (0.0-0.7); EOSINOPHILS % (AUTO) 0.8 % (0.0-7.0); HEMATOCRIT 27.6 % (37.0-47.0); HEMOGLOBIN 8.3 g/dl (12.0-16.0); IMMATURE GRANULOCYTE % (AUTO) 0.7 % (0.0-5.0); LYMPHOCYTES % (AUTO) 33.8 (10.0-50.0); MEAN CORPUSCULAR HEMOGLOBIN 24.2 pg (27.0-31.0); MEAN CORPUSCULAR HGB CONC 30.1 (31.8-35.4); MEAN CORPUSCULAR VOLUME 80.5 fl (81.0-99.0); MONOCYTES # (AUTO) 0.5 K/uL (0.4-2.0); NEUTROPHILS # (AUTO) 3.3 K/ul (2.0-6.9); NEUTROPHILS % (AUTO) 55.2; PLATELET COUNT 228 10^3/uL (140-440); RED BLOOD COUNT 3.43 10^6/ul (4.20-5.40); WHITE BLOOD COUNT 6.01 K/ul (4.6-10.2)
[2017-06-12 06:19] LABS: TROPONIN I 0.019 ng/ml (0.0000-0.4000)
[2017-06-12 06:33] LABS: ANION GAP 13.3; BUN/CREATININE RATIO 14.89; CREATININE 0.94 mg/dL (0.60-1.30); POTASSIUM 4.3 mmol/L (3.5-5.10)
--- NOTE | 2017-06-12 08:03 | DI ---
EXAM: Chest, one-view HISTORY: Shortness of breath FINDINGS: Cardiac and mediastinal contours are normal. Pulmonary vasculature is normal. Lungs are clear. Bony thorax is unremarkable. IMPRESSION: Within normal limits
[2017-06-12 08:12] LABS: IMMATURE RETIC FRACTION 29.2; RETICULOCYTE % 1.74 %
[2017-06-12] MEDS: NEURONTIN PO SCH ×2 (08:21→20:04)
[2017-06-12] MEDS: SYMBICORT 160-4.5 MCG INHALER IH SCH ×2 (08:21→20:03)
[2017-06-12] MEDS: LOVENOX SUBCUT SCH (08:21)
[2017-06-12] MEDS: ZANTAC PO SCH ×2 (08:21→16:55)
[2017-06-12] MEDS ORDERED: NON-FORMULARY MEDICATION (Ranitidine Hcl [Ranitidine Hcl] 150 MG) PO SCH ×22 (09:00)
[2017-06-12 09:01] LABS: FERRITIN 18.21 ng/mL (4.63-204.00); FOLATE 2.2 ng/mL (3.1-20.5)
[2017-06-12] MEDS ORDERED: SODIUM CHLORIDE 1,000 ML IV SCH (11:00)
[2017-06-12] MEDS: NORCO 10-325 PO PRN ×2 (11:09→20:14)
[2017-06-12 14:26] LABS: CREATINE KINASE 93 U/L
--- NOTE | 2017-06-12 14:37 | US ---
EXAM: Bilateral carotid artery Doppler History: Syncope and hypotension Comparison: Carotid Doppler 03/19/2016 Technique: Multiple sonographic images through the bilateral internal carotid arteries were obtaine d. Color duplex Doppler was used to interrogate vascular flow. Findings: The right ICA peak systolic velocities within normal limits measuring 80 cm/sec. The right ICA/cca PSV ratio is normal at 1.5. The right vertebral artery is patent and demonstrates antegrade flow. Mild to moderate plaque buildup within the right carotid bulb. The left ICA peak systolic velocity is within normal limits measuring 90 cm/sec. The left ICA/cca P SV ratio is normal at 1.6. The left vertebral artery is patent and demonstrates antegrade flow. Mi ld plaque buildup within the left internal carotid artery Impression: No significant hemodynamic stenosis of the bilateral internal carotid arteries.
--- NOTE | 2017-06-12 14:58 | CT ---
EXAM: CT Abdomen without contrast. CT Pelvis without contrast. HISTORY: Lower abdominal pain. Abdominal distension. COMPARISON: 06/06/2016. TECHNIQUE: Multiple axial images of the abdomen and pelvis were obtained without intravenous contra st. Images were reformatted in the coronal plane. FINDINGS: Please note that evaluation of the abdominal and pelvic structures is limited due to lack of intravenous contrast. No acute abnormality identified in the lung bases. Subsegmental atelectasis noted, greater on the l eft. Left lower lobe calcified granuloma is present. Degenerative changes present throughout the spine. Gallbladder is absent. The liver, pancreas, spleen, and adrenal glands demonstrate normal contour. No calcified renal stones or hydronephrosis identified. No ureteral calculi or bladder calculi are seen. The bladder appears unremarkable. Uterus is absent. The bowel is normal in course and caliber without evidence for obstruction or inflammatory process. The appendix is not seen. Phleboliths noted in the pelvis. Atherosclerotic calcifications are pre sent. No free fluid or free air identified.. Tiny fat-containing umbilical hernia noted on sagitta l image 71. Since the prior study, there has been no significant interval change. IMPRESSION: No acute abnormality in the abdomen or pelvis.
[2017-06-12] MEDS ORDERED: TYLENOL PO PRN (15:11)
[2017-06-12] MEDS ORDERED: XANAX PO SCH (15:30)
[2017-06-12] MEDS ORDERED: NON-FORMULARY MEDICATION (Tizanidine Hcl [Zanaflex] 4 MG) PO PRN ×22 (18:07)
[2017-06-12] MEDS ORDERED: RANITIDINE HCL 150 MG PO SCH ×2 (18:28→21:00)
[2017-06-12] MEDS ORDERED: CELEXA PO SCH (21:00)
[2017-06-12] MEDS ORDERED: NON-FORMULARY MEDICATION (Alprazolam [Xanax] 0.5 MG) PO SCH ×22 (21:00)
[2017-06-12] MEDS ORDERED: AMBIEN PO SCH (21:00)
[2017-06-12] MEDS ORDERED: ZANAFLEX PO SCH (21:00)
[2017-06-12] MEDS ORDERED: SEROQUEL PO SCH (21:00)
[2017-06-12] MEDS ORDERED: NON-FORMULARY MEDICATION (Zolpidem Tartrate [Ambien] 10 MG) PO SCH ×2 (21:00)
[2017-06-12] MEDS ORDERED: NON-FORMULARY MEDICATION (Citalopram Hydrobromide [Celexa] 20 MG) PO SCH ×22 (21:00)
[2017-06-12] MEDS ORDERED: SINGULAIR PO SCH (21:00)
[2017-06-12] MEDS ORDERED: QUETIAPINE FUMARATE 200 MG PO SCH (21:00)
[2017-06-13 04:17] LABS: BASOPHILS % (AUTO) 0.5 % (0.0-3.0); EOSINOPHILS # (AUTO) 0.1 K/ul (0.0-0.7); EOSINOPHILS % (AUTO) 0.9 % (0.0-7.0); HEMATOCRIT 25.7 % (37.0-47.0); HEMOGLOBIN 7.8 g/dl (12.0-16.0); IMMATURE GRANULOCYTE % (AUTO) 0.5 % (0.0-5.0); LYMPHOCYTES # (AUTO) 1.9 K/uL (0.60-3.4); LYMPHOCYTES % (AUTO) 32.4 (10.0-50.0); MEAN CORPUSCULAR HEMOGLOBIN 24.2 pg (27.0-31.0); MEAN CORPUSCULAR HGB CONC 30.4 (31.8-35.4); MEAN CORPUSCULAR VOLUME 79.8 fl (81.0-99.0); MONOCYTES # (AUTO) 0.5 K/uL (0.4-2.0); MONOCYTES % (AUTO) 8.3 (0-10); NEUTROPHILS # (AUTO) 3.4 K/ul (2.0-6.9); NEUTROPHILS % (AUTO) 57.4; PLATELET COUNT 243 10^3/uL (140-440); RED BLOOD COUNT 3.22 10^6/ul (4.20-5.40); WHITE BLOOD COUNT 5.87 K/ul (4.6-10.2)
[2017-06-13 04:34] LABS: ANION GAP 14.8; BUN/CREATININE RATIO 9.19; CALCIUM 8.4 mg/dL (8.2-10.2); CREATININE 0.87 mg/dL (0.60-1.30); POTASSIUM 3.8 mmol/L (3.5-5.10)
[2017-06-13] MEDS: DUONEB NEB SCH ×2 (05:07→09:50)
[2017-06-13] MEDS ORDERED: NON-FORMULARY MEDICATION (Tizanidine Hcl [Zanaflex] 4 MG) PO PRN ×22 (08:06)
[2017-06-13] MEDS ORDERED: QUETIAPINE FUMARATE 200 MG PO SCH (09:00)
[2017-06-13] MEDS ORDERED: NON-FORMULARY MEDICATION (Alprazolam [Xanax] 0.5 MG) PO SCH ×22 (09:00)
[2017-06-13] MEDS: LOVENOX SUBCUT SCH (09:11)
[2017-06-13] MEDS: NEURONTIN PO SCH (09:12)
[2017-06-13] MEDS: SYMBICORT 160-4.5 MCG INHALER IH SCH (09:13)
[2017-06-13 09:43] VITALS: BP 161/89; TEMP 97.2
--- NOTE | 2017-06-13 10:00 | PCM.PROG ---
Attending Provider: ATTENDING PROVIDER: Dr. VEENA LING DATE OF SERVICE: 06/13/17 SUBJECTIVE: This 62 year old WHITE/ F was hospitalized 06/11/17. The patient is lying in bed. No complaints. The patient has been up walking and feeling good. Hemoglobin dropped from 8.3 to 7.8 - has chronic history of GI bleed from hemorrhoids. Advised to take iron. Blood pressure is better now. Home medications are resumed. She was able to walk and feeling good REVIEW OF SYSTEMS: CONSTITUTIONAL: No fever, no chills. ENDOCRINE: No weight loss or weight gain. HEENT: No sinus drainage, no sore throat. CVS: No angina symptoms. No CHF symptoms. No palpitations. No atypical chest pain for CAD. No shortness of breath. RESPIRATORY: No cough, no hemoptysis. GI: No melena. No abdominal pain. No nausea, no vomiting. : No hematuria. No polyuria. SKIN: No rash. No wounds. MUSCULOSKELETAL: No pain. CASE INVESTIGATOR: No blackout, no dizziness. No headache. No double vision. PSYCHIATRIC: Not anxious; no depression. No suicidal thoughts. No homicidal thoughts. PHYSICAL EXAMINATION: GENERAL: Lying in bed in no distress. VITAL SIGNS: Temperature 97.0 F, Pulse 77, Respiratory Rate 18, BP 136/77, Pulse Ox 91% HEENT: Normocephalic, atraumatic. Mucosa is dry, pallor positive. NECK: No JVP, no carotid bruit. No lymphadenopathy. CARDIAC: S1, S2, no S3. No murmur, gallop or regurgitation. LUNGS: Clear to auscultation. ABDOMEN: Soft, non-tender. Bowel sounds active. No rigidity, guarding or CVA tenderness. EXTREMITIES: No clubbing, cyanosis or edema. NEUROLOGIC: Awake, alert and oriented x3. LYMPHATIC: No palpable lymph nodes SKIN: Not dry. Intact. MUSCULOSKELETAL: No joint swelling. LAB REVIEW: 06/13/17 04:10 06/13/17 04:10 06/13/17 04:10: WBC 5.87, RBC 3.22 L, Hgb 7.8 L, Hct 25.7 L, MCV 79.8 L, MCH 24.2 L, MCHC 30.4 L, RDW Coeff of Fabian 16.8 H, Plt Count 243, Immature Gran % ( Auto) 0.5, Neut % (Auto) 57.4, Lymph % (Auto) 32.4, Dickinson % (Auto) 8.3, Eos % ( Auto) 0.9, Baso % (Auto) 0.5, Immature Gran # (Auto) 0.0, Neut # 3.4, Lymph # 1.9, Dickinson # 0.5, Eos # 0.1, Baso # 0.0, Sodium 144, Potassium 3.8, Chloride 110 H, Carbon Dioxide 23, Anion Gap 14.8, BUN 8, Creatinine 0.87, Estimated GFR ( MDRD) 66.00, BUN/Creatinine Ratio 9.19, Glucose 130 H, Calcium 8.4 06/12/17 14:00: Total Creatine Kinase 93, Troponin I < 0.0100 06/12/17 05:45: Reticulocyte % (Auto) 1.74, Absolute Retic 0.0604, Retic Hgb Equivalent 24.9, Iron 10 L, TIBC 327, % Saturation 3, Unsat Iron Binding 317 H, Ferritin 18.21, Vitamin B12 193 L, Folate 2.2 L ASSESSMENT: 1. Status post hypotension multifactorial 2. Syncope secondary to hypotension 3. Anemia secondary to chronic GI bleed 4. DJD spine 5. Chronic pain syndrome 6. COPD PLAN: 1. Iron t.i.d. 2. Discharge home 3. Medication side effects discussed 4. Fall precautions 5. Lifestyle modification, weight loss discussed 6. Followup at [facility] in 5 days Plan and coordination of the patient's care discussed in the presence of Finishing Room Operator and nurse. CONDITION: Stable SCRIBED BY: BRYANT DU Metal Pickling Equipment Operator scribed while in presence of service performed by Dr. VEENA LING on 06/13/17 ([id number])
--- NOTE | 2017-06-13 13:54 | HP ---
DATE OF SERVICE: 06/11/17 REASON FOR HOSPITALIZATION: Syncope and fall. HISTORY OF PRESENT ILLNESS: The patient is a 62 year old female who jania to the Pain Management and had her back shots done which was her first time and went home and started feeling funny and blood pressure been running low for past two days. The patient usually uses oxygen but was not using, almost passed out on the . He brought the patient to the emergency room and in the emergency room the patient was complaining of headaches 4 out of 10. hgb 8.7, blood pressure was 94/[address] Dumont gave her two liters of bolus IV fluids and the blood pressure came up to the 110, ABG were fine, BUN and creatinine was elevated 1.32. At that time the patient was admitted to the hospital for the observation in review of syncope, hypotension and status post fall but the patient's caught the patient. REVIEW OF SYSTEMS: CONSTITUTIONAL: No night sweats. No fatigue, malaise, lethargy. No fever or chills. HEENT: Eyes: No visual changes. No eye pain. No eye discharge. ENT: No runny nose. No epistaxis. No sinus pain. No sore throat. No odynophagia. No ear pain. No congestion. RESPIRATORY: No cough, no congestion. No hemoptysis. CARDIOVASCULAR: No angina symptoms. No CHF symptoms. No atypical chest pain for CAD. No palpitations. No shortness of breath. GASTROINTESTINAL: No abdominal pain. No nausea or vomiting. No diarrhea or constipation. No hematemesis. No hematochezia. GENITOURINARY: No urgency. No frequency. No dysuria. No hematuria. No obstructive symptoms. No discharge. No pain. No significant abnormal bleeding. MUSCULOSKELETAL: No musculoskeletal pain. No joint swelling. No arthritis. NEUROLOGICAL: No headache. No neck pain. No syncope. No seizures. No dizziness. PSYCHIATRIC: Not anxious. No depression. No suicidal thoughts. No homicidal thoughts. SKIN: No rash. No lesions. No wounds. ENDOCRINE: No unexplained weight loss. No weight gain. HEMATOLOGIC/LYMPHATIC: No anemia. No purpura. No petechiae. No prolonged or excessive bleeding. No palpable lymph nodes. PERSONAL/FAMILY/SOCIAL HISTORY: The patient is single. The patient is a current every day smoker. Family history is significant for Diabetes and lung cancer. PAST MEDICAL/SURGICAL PROBLEMS: Hypertension Dyslipidemia COPD GERD Arthritis PTSD DJD spine Appendectomy Cholecystectomy Hysterectomy Tonsillectomy. MEDICATIONS: Neurontin 300mg PO twice a day Jamison 10-325 PO Q 8 hour PRN Singulair 10mg PO bedtime Zofran 4mg Po Q 8 hours PRN Symbicort two puff IH twice a day ProAir two puff IH twice a day Ambien 10mg PO bedtime Zanaflex 4mg Po twice a day PRN Lopressor 50mg PO twice a day Celexa 20mg PO bedtime Seroquel 200mg Po twice a day Xanax 0.5mg PO four times a day Acid wafer substrate tester 150mg PO twice a day ALLERGIES: Aspirin Iodine PHYSICAL EXAMINATION: VITAL SIGNS: Blood pressure 110/64, respiratory rate 25, heart rate 61, temperature 97.5. HEENT: Head normocephalic, atraumatic. Eyes: Extraocular muscles are intact. Pupils are equal, round and reactive to light and accommodation. Ears: No lesions. Nose appeared normal. Throat: No exudate or erythema. Mucosa dry. NECK: Supple. No JVD, no carotid bruit. No lymphadenopathy or thyromegaly. LUNGS: Bilaterally entry is decreased and clear to auscultation. Percussion note normal. Chest symmetrical. HEART: S1, S2, no S3. No murmurs. No cyanosis or clubbing. No ascites. Pulses: Dorsalis pedis and posterior tibial pulses +1 to +2 both sides. ABDOMEN: Soft. Nontender. Bowel sounds active. No CVA tenderness. No mass felt. EXTREMITIES: No edema. Full range of motion of all extremities, equal. NEUROLOGIC: No focal deficit. Cranial nerves II through XII are grossly intact. No headache, no double vision or headache. The patient is awake and alert. SKIN: Dry. Intact. Turgor - normal. LYMPHATIC: No palpable lymph nodes/no lymphedema. MUSCULOSKELETAL: Normal joints with no swelling. Muscle tone is normal. LABS: Sodium 142, potassium 3.8, chloride 105, bicarb 23, BUN 18, creatinine 1.32, glucose 132. First set of cardiac enzymes are negative, WBC 0.81, hgb 8.7, hct 38.8, plt count 275. ASSESSMENT: 1. Syncope, mostly like from the hypotension 2. Hypotension, secondary to medication versus dehydration 3. DJD spine, status post shots in the back 4. COPD, oxygen dependant 5. Hypertension 6. Dyslipidemia PLAN: 1. Admit patient to the observation 2. Activity, complete bed rest 3. Carotid ultrasound in the morning 4. Daily I&O's 5. IV fluids 100ml per hour 6. Keep checking the blood pressure Will follow the patient in daily rounds. TIME SPENT: More than 70 minutes. SOWMYAD
--- NOTE | 2017-06-13 14:16 | PN ---
DATE OF SERVICE: 06/12/17 SUBJECTIVE: The patient was admitted hypotension and syncope. The patient says that she is feeling some better, still has some lightheaded feeling. REVIEW OF SYSTEMS: CONSTITUTIONAL: No fever, no chills. HEENT: Normal. ENDOCRINE: No weight gain, no weight loss. CVS: No angina symptoms. No CHF symptoms. No palpitations. No atypical chest pain for CAD. No shortness of breath. No PND, no orthopnea. RESPIRATORY: No cough, no hemoptysis. GI: No nausea, no vomiting. No abdominal pain. : No hematuria. No polyuria. MUSCULOSKELETAL:. No joint swelling. PSYCHIATRIC: Not anxious. No depression. No suicidal thoughts. No homicidal thoughts. SKIN: Intact. No rash. PHYSICAL EXAMINATION: V/S: Blood pressure 134/68, respiratory rate 20, heart rate 77 and temperature 98.1. GENERAL: The patient is an obese lady laying in the bed. HEENT: Normocephalic, atraumatic. Mucosa dry. Pallor positive. No icterus. NECK: Supple. No JVD, no carotid bruit. No lymphadenopathy. LUNGS: Decreased and Clear to auscultation. No rales or rhonchi. HEART: S1, S2 normal. No S3. No murmur, gallop or regurgitation. ABDOMEN: Soft, some tenderness is present all over. Bowel sounds active. No rigidity. No rebound or guarding. No CVA tenderness. EXTREMITIES: No clubbing, cyanosis or pedal edema. MUSCULOSKELETAL: No joint swelling. NEUROLOGIC: Awake, alert, oriented times three. No focal deficit. LYMPHATIC: No lymph nodes palpable. SKIN: Intact. LABS: WBC 6.01, hgb 8.3, hct 27.6, plt count 228, sodium 141, potassium 4.3, chloride 110, bicarb 22, BUN 14, creatinine 0.94. ASSESSMENT: 1. Syncope secondary to the dehydration 2. History of back problems, status post lumbar shots 3. History CAD with heart cath two years ago 4. Hypertension 5. COPD, oxygen dependant 6. Peptic ulcer disease 7. Hiatal hernia 8. Depression 9. Anxiety PLAN: 1. Carotid ultrasound 2. Continue the IV fluids 3. Resume home medications 4. Fall precautions Will follow the patient's in daily rounds. TIME SPENT: More than 30 minutes MTDD
[2017-06-13] MEDS ORDERED: RANITIDINE HCL 150 MG PO SCH (17:00)
[2017-06-13] MEDS ORDERED: NON-FORMULARY MEDICATION (Zolpidem Tartrate [Ambien] 10 MG) PO SCH (21:00)
[2017-06-13] MEDS ORDERED: NON-FORMULARY MEDICATION (Citalopram Hydrobromide [Celexa] 20 MG) PO SCH ×22 (21:00)
--- NOTE | 2017-07-17 15:39 | DS ---
DATE OF SERVICE: 06/13/17 FINAL DIAGNOSIS: 1. Hypotension secondary to multifactor medication 2. Dehydration 3. Syncope secondary to the hypotension 4. Anemia secondary to chronic GI bleed, stable 5. DJD spine 6. Chronic pain syndrome 7. COPD 8. Coronary artery disease 9. Heart cath for chest pain 12 years ago. 10.Dyslipidemia 11.Headaches 12.GERD 13.Hiatal hernia 14.Appendectomy 15.Cholecystectomy 16.Tonsillectomy 17.PTSD from the work injury DISCHARGE INSTRUCTIONS: Discharge the patient home. Return to see Dr. Cook in [facility] in . [facility]. Resume home medication. If any further problems please call the office. MEDICATIONS AT DISCHARGE: Albuterol two puffs twice a day Xanax 0.5mg four times a day Symbicort two puffs twice a day Celexa 20mg at bedtime Ferrous twice a day Neurontin 300mg twice a day Hydrocodone 10mg Q 8 hours Lopressor 50mg Twice a day Singular 10mg at bedtime Zofran 4mg PRN Zantac Zanaflex Ambien NEW PRESCRIPTIONS: Ferrous sulfate 325mg PO three times a day DIET INSTRUCTIONS: Healthy and Cardiac diet. ACTIVITY: Get plenty of rest. SMOKING: Current everyday smoker DISEASE SPECIFIC EDUCATION: Polypharmacy Medications Dehydration Verbalized understanding. HOSPITAL COURSE: Jamia Gifford who is a 62 year old female came to the emergency room complaining of feeling weak, tired and almost passing out. Blood pressure was 94 /51, saturation 94%. The patient was seen by Dr. Dumont in the emergency room. The patient was some dehydrated. Hgb 8.7. At that time the patient was admitted to the hospital and started on the IV fluids. Hgb was steady at 7.8, creatinine got better and BUN got improved. Blood pressure was getting better and did not have any problem. The patient did have multiple medication which can give this kind of reaction if she takes most of the medication at one time which we did explain to the patient. The patient has a chronic anemia problem for which the patient been Dr. Leger. No new evaluation was done for the anemia. Otherwise the patient was getting better, up and about and did not have any problems. Not dizzy and not light headed. At that time the patient's discharge plan was made. The patient has a followup with Dr. Leger as a followup and he is aware of the anemia problem. The patient said that she will be following with him and will be taking care about that problem when she follow with him. Otherwise the patient was steady and did not have problems during the discharge. TIME SPENT: MORE THAN 55 MINUTES MTDKasia
== END 2017-06-13 10:05 | disposition home or self-care (01) | DRG 312 ==
LOC: ED 21:11 → OBSVTOIN 23:51 → MEDSURG B 23:51 → INTOOBSV 23:51
PROVIDERS: ADMIT Emergency Medicine; ATTEND Emergency Medicine
DX: I95.2 Hypotension due to drugs (principal); E86.0 Dehydration; R55 Syncope and collapse; K92.2 Gastrointestinal hemorrhage, unspecified; R42 Dizziness and giddiness; M54.9 Dorsalgia, unspecified; R51 Headache; D50.0 Iron deficiency anemia secondary to blood loss (chronic); M47.9 Spondylosis, unspecified; G89.4 Chronic pain syndrome; J44.9 Chronic obstructive pulmonary disease, unspecified; I25.10 Atherosclerotic heart disease of native coronary artery without angina pectoris; E78.5 Hyperlipidemia, unspecified; E66.9 Obesity, unspecified; K21.9 Gastro-esophageal reflux disease without esophagitis; F17.200 Nicotine dependence, unspecified, uncomplicated; F43.10 Post-traumatic stress disorder, unspecified; X58.XXXS Exposure to other specified factors, sequela; Z99.81 Dependence on supplemental oxygen; Z79.899 Other long term (current) drug therapy
CPT/HCPCS: 36415; 80048; 80053; 82550; 82607; 82728; 82746; 82803; 82962; 83540; 83550; 83605; 84145; 84466; 84484; 85025; 85045; 87040; 93005; 93010; 94640; 96360; 96361; 99284

== ENCOUNTER 2017-07-10 13:35 | Outpatient (CLI) ==
[2013-04-15 11:58] VITALS: TEMP 97.2
== END 2017-07-10 13:36 | disposition home or self-care (01) ==
LOC: RAD 13:35
PROVIDERS: ATTEND Emergency Medicine
DX: Z12.31 Encounter for screening mammogram for malignant neoplasm of breast (principal)
CPT/HCPCS: 77067

== ENCOUNTER 2017-10-25 17:39 | Emergency (ER) ==
[2017-10-25 17:43] VITALS: BP 171/103; TEMP 98.6; BMI 27.2
[2017-10-25] MEDS ORDERED: ZOFRAN 4 MG/2 ML IM STA (18:21)
[2017-10-25] MEDS ORDERED: DEMEROL 25 MG/ML VIAL IM STA (18:21)
--- NOTE | 2017-10-25 18:24 | ED.PDOC ---
General ED Provider: Dr. VEENA LING Chief Complaint: Headache Stated Complaint: Been hurting in head, Lights bothering, nausea. Lately sugars are been high. Time Seen by Physician: 18:22 Mode of Arrival: Walk-In Information Source: Patient Primary Care Provider: DANI GALVEZ Nursing and Triage Documentation Reviewed and Agree: Yes Neurological Complaint Exam - Headache Complaint/Exam Onset: Gradual Symptoms Are: Still present Timing: Constant Episodes Lasting: Hours Worst Headache Ever: Yes Initial Severity: Moderate Current Severity: Moderate Location: Right, Left, Frontal Character: Reports: Typical headache Aggravating: Reports: Bright lights Alleviating: Reports: None Associated Signs and Symptoms: Reports: Nausea. Denies: Dizziness, Seizure, Vomiting, Sinus pressure, Fever, Neck pain, Neck stiffness, Decreased LOC, Visual changes Related History: Reports: Similar episode Related Surgical History: Reports: None SAH Risk Factors: Reports: None Meningitis Risk Factors: Reports: None SDH Risk Factors: Reports: None Temporal Arteritis Risk Factors: Reports: None Normal Head CT Within Last 12 Months: No Fundoscopic Exam: Present: Normal Findings Papilledema Present: No Temporal Artery Tenderness: Present: None Sinus Tenderness: Present: None TMJ Tenderness: Present: None Meningeal Signs Positive: No Pain on Passive Flexion-Positive Kernig's: No ROM Limited In: No Limitiations Focal Weakness: Present: None Focal Sensory Loss: Present: None Gait: Normal Nystagmus Present: No Gag Reflex Present: No [id number]: Normal Findings Romberg Test Positive: No Babinski Sign: Negative Right, Negative Left Differential Diagnoses: Migraine Review of Systems - Review Of Systems Constitutional: Reports: No symptoms Eyes: Reports: No symptoms Ears, Nose, Mouth, Throat: Reports: No symptoms Respiratory: Reports: No symptoms Cardiac: Reports: No symptoms GI: Reports: No symptoms : Reports: No symptoms Musculoskeletal: Reports: No symptoms Skin: Reports: No symptoms Neurological: Reports: Headache Endocrine: Reports: No symptoms Hematologic/Lymphatic: Reports: No symptoms All Other Systems: Reviewed and Negative Past Medical History - Past Medical History Previously Healthy: No Endocrine: Reports: Dyslipidemia Cardiovascular: Reports: None Respiratory: Reports: COPD Hematological: Reports: None Gastrointestinal: Reports: GERD Genitourinary: Reports: None Neuro/Psych: Reports: None Musculoskeletal: Reports: Arthritis, Back Pain Cancer: Reports: None Last Menstrual Period: n/a - Surgical History General Surgical History: Reports: Hysterectomy, Unknown - Family History Family History: Reports: Unknown - Social History Smoking Status: Current every day smoker, Light tobacco smoker Smoking Cessation Counseling Time: > 3 min - 10 min Hx Substance Use: No Alcohol Screening: None Physical Exam - Physical Exam Appearance: Ill-appearing Eyes: EOMI, Conjunctiva clear ENT: Ears normal, Nose normal, Oropharynx normal Respiratory: Airway patent, Breath sounds clear, Breath sounds equal, Respirations nonlabored Cardiovascular: RRR, Pulses normal, No rub, No murmur GI/: Soft, Nontender, No masses, Bowel sounds normal, No Organomegaly Musculoskeletal: Normal strength, ROM intact, No edema, No calf tenderness Skin: Warm, Dry, Normal color Neurological: Sensation intact, Motor intact, Reflexes intact, Cranial nerves intact, Alert, Oriented Psychiatric: Affect appropriate, Mood appropriate Critical Care Note - Critical Care Note Total Time (mins): 30 Course - Course Hematology/Chemistry: 10/25/17 18:25 Orders, Labs, Meds: Lab Review 10/25/17 10/25/17 18:25 18:25 WBC 8.05 RBC 4.47 Hgb 9.9 L Hct 32.7 L MCV 73.2 L MCH 22.1 L MCHC 30.3 L RDW Coeff of Fabian 18.6 H Plt Count 306 Immature Gran % (Auto) 0.5 Neut % (Auto) 63.9 Lymph % (Auto) 25.6 [place] % (Auto) 9.2 Eos % (Auto) 0.4 Baso % (Auto) 0.4 Immature Gran # (Auto) 0.0 Neut # 5.2 Lymph # 2.1 [place] # 0.7 Eos # 0.0 Baso # 0.0 Hemoglobin A1c 5.3 Orders Category Date Time Status CBC W/ AUTO DIFF Stat LAB 10/25/17 18:25 Completed COMPREHENSIVE METABOLIC PANEL Stat LAB 10/25/17 18:25 Received HEMOGLOBIN A1C Stat LAB 10/25/17 18:25 Completed Meperidine HCl/Pf [Demerol 25 mg/ml Vial] MEDS 10/25/17 18:21 Discontinued 25 mg IM ONCE STA Ondansetron HCl/Pf [Zofran 4 mg/2 ml] MEDS 10/25/17 18:21 Discontinued 4 mg IM ONCE STA CT HEAD W/O CONTRAST Stat RADS 10/25/17 18:21 Taken Medications Discontinued Medications Generic Name Dose Route Start Last Admin Trade Name Freq PRN Reason Stop Dose Admin Meperidine HCl 25 mg 10/25/17 18:21 10/25/17 18:39 Demerol 25 Mg/Ml Vial IM 10/25/17 18:22 25 mg ONCE STA Administration Ondansetron HCl 4 mg 10/25/17 18:21 10/25/17 18:40 Zofran 4 Mg/2 Ml IM 10/25/17 18:22 4 mg ONCE STA Administration Vital Signs: Temp Pulse Resp BP Pulse Ox 10/25/17 17:39 98.6 F 101 H 20 171/103 H 94 L Departure - Departure Time of Disposition: 18:25 Disposition: HOME SELF-CARE Discharge Problem: Headache Instructions: Migraine Headache (ED) Condition: Good Pt referred to PMD for follow-up: Yes Additional Instructions: f/u in [facility] in 3-4 days Prescriptions: Hydrocodone/Acetaminophen [[place] 5-325 Tablet] 1 tab PO TID PRN #12 tablet PRN Reason: PAIN Ondansetron [Zofran Odt] 4 mg PO Q8H #20 tab.rapdis Allergies/Adverse Reactions: Allergies aspirin Adverse Reaction (Verified 10/25/17 17:42) Difficulty Breathing iodine Adverse Reaction (Verified 10/25/17 17:42) Hives Home Medications: Ambulatory Orders Gabapentin [Neurontin] 300 mg PO BID 03/18/16 Hydrocodone Bit/Acetaminophen [[place] 10-325] 10 - 325 each PO Q8H PRN 12/26/16 Albuterol Sulfate [Proair Hfa] 2 puff IH BID 05/01/17 Budesonide/Formoterol Fumarate [Symbicort 160-4.5 Mcg Inhaler] 2 puff IH BID Alprazolam [Xanax] 0.5 mg PO QID 06/12/17 Citalopram Hydrobromide [Celexa] 20 mg PO BEDTIME 06/12/17 Metoprolol Tartrate [Lopressor] 50 mg PO BID 06/12/17 Quetiapine Fumarate [Seroquel] 200 mg PO BID 06/12/17 Zolpidem Tartrate [Ambien] 10 mg PO BEDTIME 06/12/17 Baclofen 20 mg PO QID PRN 10/25/17 Esomeprazole Magnesium [Nexium] 40 mg PO DAILY 10/25/17 Hydrocodone/Acetaminophen [[place] 5-325 Tablet] 1 tab PO TID PRN #12 tablet 10/25 Ondansetron [Zofran Odt] 4 mg PO Q8H #20 tab.rapdis 10/25/17 Disposition Discussed With: Patient, Family
[2017-10-25 18:33] LABS: BASOPHILS % (AUTO) 0.4 % (0.0-3.0); EOSINOPHILS % (AUTO) 0.4 % (0.0-7.0); HEMATOCRIT 32.7 % (37.0-47.0); HEMOGLOBIN 9.9 g/dl (12.0-16.0); IMMATURE GRANULOCYTE % (AUTO) 0.5 % (0.0-5.0); LYMPHOCYTES # (AUTO) 2.1 K/uL (0.60-3.4); LYMPHOCYTES % (AUTO) 25.6 (10.0-50.0); MEAN CORPUSCULAR HEMOGLOBIN 22.1 pg (27.0-31.0); MEAN CORPUSCULAR HGB CONC 30.3 (31.8-35.4); MEAN CORPUSCULAR VOLUME 73.2 fl (81.0-99.0); MONOCYTES # (AUTO) 0.7 K/uL (0.4-2.0); MONOCYTES % (AUTO) 9.2 (0-10); NEUTROPHILS # (AUTO) 5.2 K/ul (2.0-6.9); NEUTROPHILS % (AUTO) 63.9; PLATELET COUNT 306 10^3/uL (140-440); RED BLOOD COUNT 4.47 10^6/ul (4.20-5.40); WHITE BLOOD COUNT 8.05 K/ul (4.6-10.2)
[2017-10-25 18:54] LABS: ALBUMIN 3.3 g/dL (3.4-5.0); ALBUMIN/GLOBULIN RATIO 0.79; ANION GAP 13.6; BILIRUBIN,TOTAL 0.18 mg/dL (0.00-1.20); BUN/CREATININE RATIO 11.65; CALCIUM 9.2 mg/dL (8.2-10.2); CREATININE 1.03 mg/dL (0.60-1.30); POTASSIUM 3.6 mmol/L (3.5-5.10); TOTAL PROTEIN 7.5 g/dL (5.8-8.1)
--- NOTE | 2017-10-25 18:55 | CT ---
EXAM: CT head without contrast. HISTORY: Headache. PROCEDURE: Contiguous axial CT images of the head without contrast with coronal and sagittal reforma ts. FINDINGS: There is diffuse cerebral atrophy. The ventricles and basal cisterns are normal in size an d configuration. No evidence of mass or midline shift. No intracranial hemorrhage or evidence of la rge vessel infarct. No extra-axial fluid collection. The paranasal sinuses and mastoid air cells are well-aerated. Impression: No intracranial hemorrhage or evidence of large vessel infarct. Diffuse cerebral atrophy.
== END 2017-10-25 19:06 | disposition home or self-care (01) ==
LOC: ED 17:39
DX: R51 Headache (principal); F17.210 Nicotine dependence, cigarettes, uncomplicated
CPT/HCPCS: 36415; 80053; 83036; 85025; 96372; 99283

== ENCOUNTER 2017-12-05 12:43 | Outpatient (CLI) ==
[2013-04-15 11:58] VITALS: TEMP 97.2
== END 2017-12-05 12:44 | disposition home or self-care (01) ==
LOC: CAR 12:43
PROVIDERS: ATTEND Emergency Medicine
DX: J44.9 Chronic obstructive pulmonary disease, unspecified (principal)
CPT/HCPCS: 94761

== ENCOUNTER 2018-03-12 12:50 | Emergency (ER) ==
[2018-03-12 13:01] VITALS: BP 124/64; TEMP 97.5; BMI 27.1
--- NOTE | 2018-03-12 13:02 | ED.PDOC ---
General ED Provider: Dr. KALPANA MARES Stated Complaint: Patient brought in by her next door neighbor who stated she was in her car appearing to be close to passing out with complaint of being Dyspneic and Dizzy/. Went out to assist patient with wheel chair. Patient had gotten out of car and ambulated unassisted to the wheelchair. Has been monitored her VS; States BP fluctuant. Meds reviewed. Only on Lisinopril for HTN. Hx of COPD on home O2. Currently on room air and pulse oximetry is noted 98 % with easy non labored respiration. Time Seen by Physician: 12:50 Mode of Arrival: Wheelchair Information Source: Patient Exam Limitations: No limitations [facility] Nursing and Triage Documentation Reviewed and Agree: Yes Reviewed sepsis parameters & appropriate labs ordered?: Yes System Inflammatory Response Syndrome: Not Applicable Sepsis Protocol: For patient's 13 years and over: Temp is 96.8 and below OR 101 and greater Pulse >90 BPM Resp >20/minute Acutely Altered Mental Status Are patient's symptoms suggestive of a new infection, such as: -Pneumonia -Skin, Soft Tissue -Endocarditis -UTI -Bone, Joint Infection -Implantable Device -Acute Abdominal Infection -Wound Infection -Meningitis -Blood Stream Catheter Infection -Unknown System Inflammatory Response Syndrome: Not Applicable Respiratory Complaint Exam - Respiratory Complaint/Exam Onset/Duration: 24 hrs Symptoms Are: Still present (mild) Timing: Intermittent Initial Severity: Severe Current Severity: Mild Location: Chest Character: Reports: Dry cough Aggravating: Reports: Exertion, Passive smoke exposure Alleviating: Reports: Bronchodilators, Upright position Associated Signs and Symptoms: Reports: Dyspnea, Wheezing. Denies: Rapid breathing Related History: Reports: Similar episode History of Healthcare-Acquired Pneumonia: No Related Surgical History: Reports: None Pulmonary Embolism Risk Factors: None Cardiac Risk Factors: Reports: None Pseudomonas Risk Factors: Reports: None Tuberculosis Risk Factors: Reports: None Status Asthmaticus Risk Factors: Reports: None Home Oxygen Use: Yes Recent Stress Test: No Recent Echo/LV Function: No Current Antibiotic Use: No Current Asthma Medication Use: Yes Respiratory Distress: Mild Inadequate Respiratory Effort: Yes Dysphagia Present: No Stridor Present: No JVD Present: No Accessory Muscle Use: No Retractions: Not Present Diminished Breath Sounds: No Sinus Tenderness: None Grunting Respirations: No Kussmaul Respirations: No Review of Systems - Review Of Systems Constitutional: Reports: No symptoms, Weakness Eyes: Reports: No symptoms Ears, Nose, Mouth, Throat: Reports: No symptoms Respiratory: Reports: No symptoms, Short of air, Wheezing Cardiac: Reports: No symptoms GI: Reports: No symptoms : Reports: No symptoms Musculoskeletal: Reports: No symptoms Skin: Reports: No symptoms Neurological: Reports: No symptoms Endocrine: Reports: No symptoms Hematologic/Lymphatic: Reports: No symptoms All Other Systems: Reviewed and Negative Past Medical History - Past Medical History Previously Healthy: No Endocrine: Reports: Dyslipidemia Cardiovascular: Reports: None, Hypertension (History uncontrolled), Other ( orthostatic hypotension; previous syncope) Respiratory: Reports: COPD Hematological: Reports: None Gastrointestinal: Reports: GERD Genitourinary: Reports: None Neuro/Psych: Reports: None Musculoskeletal: Reports: Arthritis, Back Pain Cancer: Reports: None - Surgical History General Surgical History: Reports: Hysterectomy, Unknown - Family History Family History: Reports: Unknown - Social History Smoking Status: Current every day smoker, Light tobacco smoker Hx Substance Use: No Alcohol Screening: None Physical Exam - Physical Exam Appearance: Well-appearing, No pain distress, Well-nourished Ill-appearing: None Pain Distress: None Eyes: DONTE, EOMI, Conjunctiva clear ENT: Ears normal, Nose normal, Oropharynx normal Neck: Supple Respiratory: Airway patent, Breath sounds equal, Breath sounds diminished ( inspiratory wheezing anterior>posterior), Respirations nonlabored Cardiovascular: RRR, Pulses normal, No rub, No murmur GI/: Soft, Nontender, No masses, Bowel sounds normal, No Organomegaly Musculoskeletal: Normal strength, ROM intact, No edema, No calf tenderness Skin: Warm, Dry, Normal color Neurological: Sensation intact, Motor intact, Reflexes intact, Cranial nerves intact, Alert, Oriented Psychiatric: Affect appropriate, Mood appropriate, Anxious Interpretation - Radiology Interpretation Radiology Interpretation By: Radiologist Radiology Results: No acute changes Exam Interpreted: CXR Re-Evaluation - Re-Evaluation Time of Re-Evaluation: 15:50 Status: Improved Vital Signs Stable: Yes Appearance: NAD Lungs: Clear Skin: Warm and Dry Neuro: Alert and Oriented X3 CV: RRR Critical Care Note - Critical Care Note Total Time (mins): 0 Course - Course Hematology/Chemistry: 03/12/18 13:30 03/12/18 13:20 Orders, Labs, Meds: Lab Review 03/12/18 03/12/18 03/12/18 13:10 13:20 13:20 WBC RBC Hgb Hct MCV MCH MCHC RDW Coeff of Fabian Plt Count Immature Gran % (Auto) Neut % (Auto) Lymph % (Auto) [place] % (Auto) Eos % (Auto) Baso % (Auto) Immature Gran # (Auto) Neut # (Auto) Lymph # (Auto) [place] # (Auto) Eos # (Auto) Baso # (Auto) Puncture Site R brach O2 Saturation 95.0 ABG pH 7.51 H* ABG pCO2 34.0 L ABG pO2 68.0 L ABG HCO3 27 H ABG Total CO2 28 ABG Base Excess 4 H Ksah Test + FiO2 % 21.0 Sodium 140 Potassium 3.7 Chloride 105 Carbon Dioxide 23 Anion Gap 15.7 BUN 16 Creatinine 0.83 Estimated GFR (MDRD) 69.00 BUN/Creatinine Ratio 19.27 Glucose 91 Calcium 9.2 Total Bilirubin 0.3 AST 17 ALT 12 Alkaline Phosphatase 81 Troponin I < 0.0100 Total Protein 7.6 Albumin 3.4 Globulin 4.2 Albumin/Globulin Ratio 0.81 Urine Color Urine Clarity Urine pH Ur Specific [place] Urine Protein Urine Glucose (UA) Urine Ketones Urine Blood Urine Nitrite Urine Bilirubin Urine Urobilinogen Ur Leukocyte Esterase Urine Microscopic RBC Ur Squamous Epith Cells Urine Mucus Urine Opiates Screen Ur Oxycodone Screen Urine Methadone Screen Ur Propoxyphene Screen Ur Barbiturates Screen U Tricyclic Antidepress Ur Phencyclidine Scrn Ur Amphetamine Screen U Methamphetamines Scrn U Benzodiazepines Scrn Urine Cocaine Screen U Cannabinoids Screen Influ A Molecular Assay Influ B Molecular Assay 03/12/18 03/12/18 03/12/18 13:20 13:30 14:20 WBC 7.79 RBC 4.16 L Hgb 10.5 L Hct 33.4 L MCV 80.3 L MCH 25.2 L MCHC 31.4 L RDW Coeff of Fabian 16.5 H Plt Count 249 Immature Gran % (Auto) 0.3 Neut % (Auto) 64.7 Lymph % (Auto) 26.4 [place] % (Auto) 7.8 Eos % (Auto) 0.5 Baso % (Auto) 0.3 Immature Gran # (Auto) 0.0 Neut # (Auto) 5.0 Lymph # (Auto) 2.1 [place] # (Auto) 0.6 Eos # (Auto) 0.0 Baso # (Auto) 0.0 Puncture Site O2 Saturation ABG pH ABG pCO2 ABG pO2 ABG HCO3 ABG Total CO2 ABG Base Excess Kash Test FiO2 % Sodium Potassium Chloride Carbon Dioxide Anion Gap BUN Creatinine Estimated GFR (MDRD) BUN/Creatinine Ratio Glucose Calcium Total Bilirubin AST ALT Alkaline Phosphatase Troponin I Total Protein Albumin Globulin Albumin/Globulin Ratio Urine Color Urine Clarity Urine pH Ur Specific [place] Urine Protein Urine Glucose (UA) Urine Ketones Urine Blood Urine Nitrite Urine Bilirubin Urine Urobilinogen Ur Leukocyte Esterase Urine Microscopic RBC Ur Squamous Epith Cells Urine Mucus Urine Opiates Screen Positive Ur Oxycodone Screen Negative Urine Methadone Screen Negative Ur Propoxyphene Screen Negative Ur Barbiturates Screen Negative U Tricyclic Antidepress Positive Ur Phencyclidine Scrn Negative Ur Amphetamine Screen Negative U Methamphetamines Scrn Negative U Benzodiazepines Scrn Positive Urine Cocaine Screen Negative U Cannabinoids Screen Negative Influ A Molecular Assay Negative by naat Influ B Molecular Assay Negative by naat 03/12/18 14:20 WBC RBC Hgb Hct MCV MCH MCHC RDW Coeff of Fabian Plt Count Immature Gran % (Auto) Neut % (Auto) Lymph % (Auto) [place] % (Auto) Eos % (Auto) Baso % (Auto) Immature Gran # (Auto) Neut # (Auto) Lymph # (Auto) [place] # (Auto) Eos # (Auto) Baso # (Auto) Puncture Site O2 Saturation ABG pH ABG pCO2 ABG pO2 ABG HCO3 ABG Total CO2 ABG Base Excess Kash Test FiO2 % Sodium Potassium Chloride Carbon Dioxide Anion Gap BUN Creatinine Estimated GFR (MDRD) BUN/Creatinine Ratio Glucose Calcium Total Bilirubin AST ALT Alkaline Phosphatase Troponin I Total Protein Albumin Globulin Albumin/Globulin Ratio Urine Color Yellow Urine Clarity Clear Urine pH 8.5 Ur Specific [place] 1.020 Urine Protein 1+ Urine Glucose (UA) Negative Urine Ketones Trace Urine Blood Trace-intact Urine Nitrite Negative Urine Bilirubin 1+ Urine Urobilinogen >=8.0 Ur Leukocyte Esterase Negative Urine Microscopic RBC 2-5 Ur Squamous Epith Cells 10-20 Urine Mucus 1+ Urine Opiates Screen Ur Oxycodone Screen Urine Methadone Screen Ur Propoxyphene Screen Ur Barbiturates Screen U Tricyclic Antidepress Ur Phencyclidine Scrn Ur Amphetamine Screen U Methamphetamines Scrn U Benzodiazepines Scrn Urine Cocaine Screen U Cannabinoids Screen Influ A Molecular Assay Influ B Molecular Assay Orders Category Date Time Status ABG DRAW REQUEST Stat CARDIO 03/12/18 13:12 Completed EKG-(ED ONLY) Stat CARDIO 03/12/18 13:10 Completed IV ACCESS ONCE CARE 03/12/18 13:11 Active ABG Stat LAB 03/12/18 13:10 Completed BLOOD CULTURE (ED ONLY) Stat LAB 03/12/18 13:10 Ordered CBC W/ AUTO DIFF Stat LAB 03/12/18 13:30 Completed CMP [COMPREHENSIVE METABOLIC PANEL] Stat LAB 03/12/18 13:20 Completed FLU A & B MOLECULAR [FLU A/B MOLECULAR] Stat LAB 03/12/18 13:20 Completed TROPONIN I Stat LAB 03/12/18 13:20 Completed UA [URINALYSIS C & S IF INDICATED] Stat LAB 03/12/18 14:20 Completed URINE DRUG SCREEN (RAPID FOR ED) [DRUG SCREEN, URINE, LAB 03/12/18 14:20 Completed RAPID] Stat CHEST, 2 VIEWS PA & LAT Stat RADS 03/12/18 15:28 Completed Vital Signs: Temp Pulse Resp BP Pulse Ox 03/12/18 12:51 97.5 F L 89 20 124/64 97 Departure - Departure Time of Disposition: 15:50 Disposition: HOME SELF-CARE Discharge Problem: COPD (chronic obstructive pulmonary disease), Dizziness, Hypertension, Anemia, Anxiety Instructions: COPD (Chronic Obstructive Pulmonary Disease) (ED), Dizziness (ED) Condition: Good Pt referred to PMD for follow-up: Yes IPMP verified?: No Additional Instructions: Take maintenance meds as directed Follow up with pcp i1 week Monitor VS at home Allergies/Adverse Reactions: Allergies aspirin Adverse Reaction (Verified 03/12/18 13:03) Difficulty Breathing iodine Adverse Reaction (Verified 03/12/18 13:03) Hives Home Medications: Ambulatory Orders Gabapentin [Neurontin] 300 mg PO BID 03/18/16 Hydrocodone Bit/Acetaminophen [[place] 10-325] 10 - 325 each PO Q8H PRN 12/26/16 Alprazolam [Xanax] 0.5 mg PO QID 06/12/17 Citalopram Hydrobromide [Celexa] 20 mg PO BEDTIME 06/12/17 Quetiapine Fumarate [Seroquel] 200 mg PO BID 06/12/17 Zolpidem Tartrate [Ambien] 10 mg PO BEDTIME 06/12/17 Tizanidine HCl [Zanaflex] 4 mg PO TID 03/12/18 Disposition Discussed With: Patient (Make follow up apt with PCP in 1 week, continue home meds.)
--- NOTE | 2018-03-12 15:49 | DI ---
EXAM: Chest two view, frontal and lateral views. HISTORY: Chest wheezing. COMPARISON: 06/11/2017. FINDINGS: The heart size is normal. There is no pulmonary vascular congestion. The lungs are clear save for calcified granulomatous changes. No pleural effusion or pneumothorax is seen. No acute os seous abnormality identified. Clips noted in the upper abdomen. Since the prior study, there has bee n no significant interval change. IMPRESSION: No acute cardiopulmonary process.
== END 2018-03-12 16:18 | disposition home or self-care (01) ==
LOC: ED 12:50
DX: J44.9 Chronic obstructive pulmonary disease, unspecified (principal); R42 Dizziness and giddiness; I10 Essential (primary) hypertension; D64.9 Anemia, unspecified; F41.9 Anxiety disorder, unspecified; F17.210 Nicotine dependence, cigarettes, uncomplicated; Z79.899 Other long term (current) drug therapy
CPT/HCPCS: 36415; 80053; 80306; 81001; 82803; 84484; 85025; 87040; 87502; 93005; 93010; 99283

== ENCOUNTER 2018-12-30 10:11 | Outpatient (CLI) ==
[2013-04-15 11:58] VITALS: TEMP 97.2
--- NOTE | 2018-12-30 10:56 | MAMMO ---
EXAM: Bilateral digital screening mammogram (2-D and 3-D) History: Screening Comparison: Bilateral mammogram 07/10/2017 Findings: MLO and CC views of bilateral breasts demonstrate predominately fatty replaced breast pare nchyma. There are no dominant masses, no suspicious microcalcifications and no architectural distort ions. CAD was reviewed by the radiologist. Tomosynthesis was performed. Impression: Stable negative mammogram. Recommend followup routine screening mammography in 1 year. BIRADS 1, negative
== END 2018-12-30 10:12 | disposition home or self-care (01) ==
LOC: RAD 10:11
PROVIDERS: ATTEND Family Medicine
DX: Z12.31 Encounter for screening mammogram for malignant neoplasm of breast (principal); D50.9 Iron deficiency anemia, unspecified; E53.8 Deficiency of other specified B group vitamins; E78.2 Mixed hyperlipidemia; I10 Essential (primary) hypertension; R79.89 Other specified abnormal findings of blood chemistry
CPT/HCPCS: 36415; 80053; 80061; 82607; 82728; 82746; 83540; 83550; 84439; 84443; 84480; 85025

== ENCOUNTER 2019-01-05 06:13 | Outpatient (CLI) ==
[2013-04-15 11:58] VITALS: TEMP 97.2
--- NOTE | 2019-01-05 11:59 | ECHO2D ---
Date of Exam: 01/05/19 Ordering Physician: DR. BAUDILIO LAWSON Room #: OP Reason for Echo: GALLOP RHYTHM, S4 (FOURTH HEART SOUND) M-Mode Normal Adult Results LV Dimensions Normal Adult Results AoV Opening excursions >1.6 >1.6 LVEDD-base- 3.5-5.8 4.8 Ao root dimensions 2.0-3.7 3.4 LVESD-base- 3.1-4.6 L. Atrium dimensions 1.9-3.8 3.9 Post. Wall thickness 0.8-1.1 1.2 IV septum (thickness) 0.7-1.2 1.3 Post. Wall excursion 0.72-1.3 NORMAL Septal motion NORMAL Systolic motion R. Ventricular cavity 1.5-2.0 NORMAL LVEF 60% 61% Paradoxical septal wall motion NORMAL 2-D : 2-D M Mode Echocardiogram was performed using apical four chamber and left parasternal long and short axis views. Mitral, tricuspid and aortic valves appear to be normal. Contractility of the left ventricle seems to be normal, so is the cavity size. Left atrial cavity size and aortic root appear to be normal. There is no pericardial effusion. There is no thrombus noted in the left ventricular or left aortic cavity. No mitral valve prolapse noted. M-MODE: MV: NORMAL AV: NORMAL TV: NORMAL PV: CHAMBER SIZE: NORMAL WALL MOTION: NORMAL PERICARDIUM: NORMAL INTERPRETATION: 1. BORDERLINE LEFT VENTRICULAR HYPERTROPHY 2. NORMAL LEFT VENTRICULAR CONTRACTILITY 3. NORMAL VALVES MTDD
== END 2019-01-05 06:14 | disposition home or self-care (01) ==
LOC: CAR 06:13
PROVIDERS: ATTEND Family Medicine
DX: R00.8 Other abnormalities of heart beat (principal); R01.2 Other cardiac sounds

== ENCOUNTER 2019-01-06 13:57 | Outpatient (CLI) ==
[2013-04-15 11:58] VITALS: TEMP 97.2
== END 2019-01-06 13:58 | disposition home or self-care (01) ==
LOC: RHC-LAB 13:57 → FCC-LAB 13:58
PROVIDERS: ATTEND Family Medicine
DX: R73.9 Hyperglycemia, unspecified (principal)
CPT/HCPCS: 36415; 83037

== ENCOUNTER 2019-01-28 07:59 | Emergency (ER) | payer OTHER ==
[2019-01-28 08:06] VITALS: BP 105/71; TEMP 99.3; BMI 25.9
--- NOTE | 2019-01-28 08:19 | ED.PDOC ---
General ED Provider: Dr. KRISTIN SMITH Chief Complaint: Shortness of Air Stated Complaint: 4 days of symptoms,exertional SOB Time Seen by Physician: 08:05 Mode of Arrival: Walk-In Information Source: Patient Exam Limitations: No limitations Primary Care Provider: BAUDILIO LAWSON Nursing and Triage Documentation Reviewed and Agree: Yes Does patient meet sepsis criteria?: Yes (sYSTOLIC bp FLUCTUATINF FROM 105 TO 86, r 28,hr 124) If yes, has appropriate treatment been initiated?: No System Inflammatory Response Syndrome: Pulse >90 BPM, Resp >20/Minute Sepsis Protocol: For patient's 13 years and over: Temp is 96.8 and below OR 101 and greater Pulse >90 BPM Resp >20/minute Acutely Altered Mental Status Are patient's symptoms suggestive of a new infection, such as: -Pneumonia -Skin, Soft Tissue -Endocarditis -UTI -Bone, Joint Infection -Implantable Device -Acute Abdominal Infection -Wound Infection -Meningitis -Blood Stream Catheter Infection -Unknown Respiratory Complaint Exam - Respiratory Complaint/Exam Onset/Duration: 4 days Symptoms Are: Still present Timing: Constant Initial Severity: Moderate Current Severity: Moderate Location: Chest Character: Reports: Non-productive cough Aggravating: Reports: Exertion Alleviating: Reports: Upright position Associated Signs and Symptoms: Reports: Rapid breathing, Fever Related History: Reports: Similar episode History of Healthcare-Acquired Pneumonia: No Related Surgical History: Reports: None Cardiac Risk Factors: Reports: Smoking Tuberculosis Risk Factors: Reports: None Status Asthmaticus Risk Factors: Reports: None Home Oxygen Use: No Recent Stress Test: No Recent Echo/LV Function: Yes (apparenmtly normal) Current Antibiotic Use: No Current Asthma Medication Use: No Respiratory Distress: Moderate Inadequate Respiratory Effort: No Dysphagia Present: Yes (exertional SOB) Stridor Present: No JVD Present: No Accessory Muscle Use: No Retractions: Not Present Diminished Breath Sounds: Yes Sinus Tenderness: None Grunting Respirations: Yes Kussmaul Respirations: No Differential Diagnoses: Pneumonia, Bronchitis, Lower Resp. Infection Quality Indicators For Pneumonia: SpO2 assessed, Empiric Antibiotic Rx, Vital signs, Mental status assessed Review of Systems - Review Of Systems Constitutional: Reports: Fever, Weakness, Other Eyes: Reports: No symptoms Ears, Nose, Mouth, Throat: Reports: Epistaxis Respiratory: Reports: Cough, Short of air, Other Cardiac: Reports: No symptoms GI: Reports: No symptoms : Reports: No symptoms Musculoskeletal: Reports: No symptoms Skin: Reports: No symptoms Neurological: Reports: No symptoms Endocrine: Reports: No symptoms Hematologic/Lymphatic: Denies: No symptoms All Other Systems: Reviewed and Negative Past Medical History - Past Medical History Previously Healthy: No Endocrine: Reports: Dyslipidemia Cardiovascular: Reports: None, Hypertension (History uncontrolled), Other ( orthostatic hypotension; previous syncope) Respiratory: Reports: COPD Hematological: Reports: None Gastrointestinal: Reports: GERD Genitourinary: Reports: None Neuro/Psych: Reports: None Musculoskeletal: Reports: Arthritis, Back Pain Cancer: Reports: None Last Menstrual Period: hysterectomy - Surgical History General Surgical History: Reports: Hysterectomy, Unknown - Family History Family History: Reports: Unknown - Social History Smoking Status: Former smoker Hx Substance Use: No Alcohol Screening: None Physical Exam - Physical Exam Appearance: Ill-appearing Ill-appearing: Moderate Pain Distress: None Eyes: DONTE ENT: Ears normal Neck: Supple Respiratory: Breath sounds diminished, Rhonchi Cardiovascular: Tachycardia GI/: Soft, Nontender Musculoskeletal: Normal strength Skin: Warm Neurological: Sensation intact Psychiatric: Affect appropriate Critical Care Note - Critical Care Note Total Time (mins): 0 Course - Course Hematology/Chemistry: 01/28/19 08:50 01/28/19 08:50 Orders, Labs, Meds: Lab Review 01/28/19 01/28/19 01/28/19 08:27 08:50 08:50 WBC 8.38 RBC 4.90 Hgb 13.5 Hct 42.1 MCV 85.9 MCH 27.6 MCHC 32.1 RDW Coeff of Fabian 13.8 Plt Count 213 Immature Gran % (Auto) 0.4 Neut % (Auto) 77.0 Lymph % (Auto) 12.6 [place] % (Auto) 9.8 Eos % (Auto) 0.0 Baso % (Auto) 0.2 Immature Gran # (Auto) 0.0 Neut # (Auto) 6.5 Lymph # (Auto) 1.1 [place] # (Auto) 0.8 Eos # (Auto) 0.0 Baso # (Auto) 0.0 Puncture Site L rad O2 Saturation 86.0 L ABG pH 7.373 ABG pCO2 40.0 ABG pO2 53.0 L* ABG HCO3 23.3 ABG Total CO2 24 ABG Base Excess -2 Kash Test + FiO2 % 21.0 Sodium 138.0 Potassium 4.35 Chloride 102.0 Carbon Dioxide 25.7 Anion Gap 14.65 BUN 10.2 Creatinine 1.33 H Estimated GFR (MDRD) 40.00 BUN/Creatinine Ratio 7.66 Glucose 137.0 H Lactic Acid Calcium 8.65 Total Bilirubin 0.56 AST 38.4 H ALT 25.1 Alkaline Phosphatase 78.7 Troponin I < 0.012 Total Protein 7.81 Albumin 4.18 Globulin 3.63 Albumin/Globulin Ratio 1.15 Procalcitonin 01/28/19 01/28/19 08:50 08:50 WBC RBC Hgb Hct MCV MCH MCHC RDW Coeff of Fabian Plt Count Immature Gran % (Auto) Neut % (Auto) Lymph % (Auto) [place] % (Auto) Eos % (Auto) Baso % (Auto) Immature Gran # (Auto) Neut # (Auto) Lymph # (Auto) [place] # (Auto) Eos # (Auto) Baso # (Auto) Puncture Site O2 Saturation ABG pH ABG pCO2 ABG pO2 ABG HCO3 ABG Total CO2 ABG Base Excess Kash Test FiO2 % Sodium Potassium Chloride Carbon Dioxide Anion Gap BUN Creatinine Estimated GFR (MDRD) BUN/Creatinine Ratio Glucose Lactic Acid 1.20 Calcium Total Bilirubin AST ALT Alkaline Phosphatase Troponin I Total Protein Albumin Globulin Albumin/Globulin Ratio Procalcitonin < 0.05 Orders Category Date Time Status ABG DRAW REQUEST Stat CARDIO 01/28/19 08:27 Completed EKG-(ED ONLY) Stat CARDIO 01/28/19 08:33 Completed NEBULIZER TREATMENT Stat CARDIO 01/28/19 09:55 Completed O2 [ED APPLY O2] .ONCE EMERGENCY 01/28/19 08:31 Active ABG Stat LAB 01/28/19 08:27 Completed BLOOD CULTURE (ED ONLY) Stat LAB 01/28/19 08:33 Received CBC W/ AUTO DIFF Stat LAB 01/28/19 08:50 Completed COMPREHENSIVE METABOLIC PANEL Stat LAB 01/28/19 08:50 Completed LACTIC ACID Stat LAB 01/28/19 08:50 Completed PROCALCITONIN Stat LAB 01/28/19 08:50 Completed TROPONIN I Stat LAB 01/28/19 08:50 Completed 0.9 % Sodium Chloride [Saline Flush] MEDS 01/28/19 08:35 Active 1 syr IVF PRN PRN Albuterol Sulfate 0.083% Neb [Albuterol 0.083% Neb] MEDS 01/28/19 09:55 Discontinued 1 vial NEB ONCE STA Ceftriaxone Sodium [Rocephin] MEDS 01/28/19 08:58 Discontinued 1 gm .ROUTE .STK-MED ONE Ceftriaxone Sodium [Rocephin] 1 gm MEDS 01/28/19 08:29 Discontinued 0.9 % Sodium Chloride [Sodium Chloride] 50 ml IV ONCE Methylprednisolone Sod Succ/Pf [Solu-Medrol 125 mg] MEDS 01/28/19 11:23 Discontinued 125 mg .ROUTE .STK-MED ONE Methylprednisolone Sod Succ/Pf [Solu-Medrol 125 mg] MEDS 01/28/19 11:19 Discontinued 125 mg IVP ONCE STA Sodium Chloride 0.9% [Sodium Chloride] 1,000 ml MEDS 01/28/19 08:36 Discontinued IV BOLUS CHEST, 2 VIEWS PA & LAT Stat RADS 01/28/19 08:25 Completed Medications Generic Name Dose Route Start Last Admin Trade Name Freq PRN Reason Stop Dose Admin Sodium Chloride 1 syr 01/28/19 08:35 01/28/19 09:05 Saline Flush IVF 1 syr PRN PRN Administration To flush IV Discontinued Medications Generic Name Dose Route Start Last Admin Trade Name Freq PRN Reason Stop Dose Admin Albuterol Sulfate 1 vial 01/28/19 09:55 01/28/19 10:00 Albuterol 0.083% Neb NEB 01/28/19 09:56 1 vial ONCE STA Administration Ceftriaxone Sodium 1 gm/ 50 mls @ 75 mls/hr 01/28/19 08:29 01/28/19 09:06 Sodium Chloride IV 01/28/19 09:08 75 mls/hr ONCE STA Administration Sodium Chloride 1,000 mls @ 1,000 mls/hr 01/28/19 08:36 01/28/19 09:05 Sodium Chloride IV 01/28/19 09:35 1,000 mls/hr BOLUS STA Administration Methylprednisolone Sodium Succinate 125 mg 01/28/19 11:19 Solu-Medrol 125 Mg IVP 01/28/19 11:20 ONCE STA Vital Signs: Temp Pulse Resp BP Pulse Ox 01/28/19 07:59 99.3 F 124 H 28 H 105/71 90 L Departure - Departure Time of Disposition: 12:14 Disposition: HOME SELF-CARE Discharge Problem: Emphysema of lung Instructions: Chronic Bronchitis (ED) Condition: Fair Pt referred to PMD for follow-up: No IPMP verified?: No Allergies/Adverse Reactions: Allergies aspirin Adverse Reaction (Verified 01/28/19 08:08) Difficulty Breathing iodine Adverse Reaction (Verified 01/28/19 08:08) Hives Home Medications: Ambulatory Orders Gabapentin [Neurontin] 300 mg PO BID 03/18/16 Hydrocodone Bit/Acetaminophen [[place] 10-325] 10 - 325 each PO Q8H PRN 12/26/16 Alprazolam [Xanax] 0.5 mg PO QID 06/12/17 Citalopram Hydrobromide [Celexa] 20 mg PO BEDTIME 06/12/17 Quetiapine Fumarate [Seroquel] 200 mg PO BID 06/12/17 Tizanidine HCl [Zanaflex] 4 mg PO TID 03/12/18 Cyclobenzaprine HCl 10 mg PO TID 12/15/18 Gabapentin 300 mg PO TID 12/15/18 Vistaril 25 mg PO TID 12/15/18 Disposition Discussed With: Patient
--- NOTE | 2019-01-28 08:50 | DI ---
Exam: Two views of the chest. Comparison: 03/12/2018. Reason for exam: Shortness of breath with pneumonia. FINDINGS: No pneumothorax, pleural effusion, or focal consolidation. The cardiac silhouette is not enlarged. The imaged osseous structures appear grossly unremarkable without acute fracture. Impression: No acute cardiopulmonary process
[2019-01-28] MEDS: ROCEPHIN ONE (09:04)
[2019-01-28] MEDS: SODIUM CHLORIDE 1,000 ML IV STA (09:05)
[2019-01-28] MEDS: ROCEPHIN 1 GM in SODIUM CHLORIDE 50 ML IV STA (09:06)
[2019-01-28] MEDS: ALBUTEROL 0.083% NEB NEB STA (10:00)
[2019-01-28] MEDS: SOLU-MEDROL 125 MG ONE (13:33)
[2019-01-28] MEDS: SOLU-MEDROL 125 MG IVP STA (13:33)
== END 2019-01-28 12:40 | disposition home or self-care (01) ==
LOC: ED 07:59
DX: J43.9 Emphysema, unspecified (principal); R06.02 Shortness of breath; F17.210 Nicotine dependence, cigarettes, uncomplicated; R53.1 Weakness; R50.9 Fever, unspecified; R04.0 Epistaxis; J44.9 Chronic obstructive pulmonary disease, unspecified; I10 Essential (primary) hypertension; E78.5 Hyperlipidemia, unspecified; Z79.899 Other long term (current) drug therapy
CPT/HCPCS: 36415; 80053; 82803; 83605; 84145; 84484; 85025; 87040; 93005; 93010; 94640; 96361; 96365; 96375; 99283

== ENCOUNTER 2019-04-06 14:51 | Outpatient (CLI) ==
[2013-04-15 11:58] VITALS: TEMP 97.2
== END 2019-04-06 14:52 | disposition home or self-care (01) ==
LOC: RHC-LAB 14:51 → FCC-LAB 14:52
PROVIDERS: ATTEND Family Medicine
DX: E78.2 Mixed hyperlipidemia (principal)
CPT/HCPCS: 36415; 80061

== ENCOUNTER 2019-04-09 10:42 | Outpatient (CLI) | payer OTHER ==
[2013-04-15 11:58] VITALS: TEMP 97.2
== END 2019-04-09 10:43 | disposition home or self-care (01) ==
LOC: RHC-LAB 10:42 → FCC-LAB 10:43
PROVIDERS: ATTEND Family Medicine
DX: Z86.19 Personal history of other infectious and parasitic diseases (principal)
CPT/HCPCS: 87338